=== PATIENT | male | born 1950 | race Caucasian/White ===

== ENCOUNTER 2017-01-16 13:27 | Inpatient (IN) | payer MEDICARE ==
[~2017-01-16] VITALS: Ht 165.1 cm; Wt 60.8 kg
[2017-01-16] MEDS ORDERED: ASPIRIN 325 MG TAB PO STA (13:53)
[2017-01-16] MEDS ORDERED: SOD CHLORIDE 0.9% 1,000 ML IV STA (13:53)
[2017-01-16 14:49] LABS: ADD SCAN DIFF NO
[2017-01-16 14:52] LABS: BASOPHIL # 0.1 10^3/ul (0.0-0.1); EOSINOPHILS # 0.4 10^3/ul (0.0-0.5); EOSINOPHILS % 5.3 % (0.0-7.0); HEMATOCRIT 48.1 % (42.0-52.0); HEMOGLOBIN 15.9 g/dl (14.0-18.0); LYMPHOCYTES # 2.4 10^3/ul (0.8-2.9); LYMPHOCYTES % 34.1 % (15.0-51.0); MEAN CORPUSCULAR HEMOGLOBIN 29.7 pg (29.0-33.0); MEAN CORPUSCULAR HGB CONC 33.1 g/dl (32.0-37.0); MEAN CORPUSCULAR VOLUME 89.7 fl (82.0-101.0); MEAN PLATELET VOLUME 9.5 fl (7.4-10.4); MONOCYTE # 0.6 10^3/ul (0.3-0.9); MONOCYTES % 8.9 % (0.0-11.0); NEUTROPHIL # 3.5 10^3/ul (1.6-7.5); NEUTROPHILS % 50.6 % (39.0-77.0); PLATELET COUNT 426 10^3/UL (140-415); RED BLOOD COUNT 5.36 10^6/ul (4.70-6.10); RED CELL DISTRIBUTION WIDTH 12.2 % (11.5-14.5)
[2017-01-16 15:05] LABS: CHLORIDE 101 mmol/L (97-110); SODIUM 141 mmol/L (135-144)
[2017-01-16 15:06] LABS: POTASSIUM 4.8 mmol/L (3.5-5.1)
[2017-01-16 15:08] LABS: ANION GAP 14 (8-16); BLOOD UREA NITROGEN 12 mg/dl (7-20); CARBON DIOXIDE 31 mmol/L (21-31); CREATININE 0.93 mg/dl (0.61-1.24)
[2017-01-16 15:09] LABS: CALCIUM 9.7 mg/dl (8.4-10.2); GLUCOSE 108 mg/dl (70-220)
--- NOTE | 2017-01-16 15:10 | RADRPT ---
PROCEDURE: XR Chest. CLINICAL INDICATION: Stroke TECHNIQUE: Chest AP portable COMPARISON: None available FINDINGS: The mediastinal structures are unremarkable. There is calcification of the thoracic aorta (consiste nt with atherosclerosis). The heart is normal in size and configuration. The pulmonary vascularity is normal. The lung simons are unremarkable. No consolidation is identified. The pleural spaces are unremarkable. There are senescent changes of the axial skeleton. IMPRESSION: Calcification of the thoracic aorta (consistent with atherosclerosis). No evidence for active cardiopulmonary disease. RPTAT: HGDB .Jamey Javier MD, MD Date Time Electronically viewed and signed by .Jamey Javier MD, on 01/16/2017 15:09 .B/
[2017-01-16 15:16] LABS: INR 0.91; PARTIAL THROMBOPLASTIN TIME 30.9 Sec (25.0-35.0); PROTIME 12.3 Sec (12.2-14.2)
[2017-01-16 15:21] LABS: TROPONIN-I < 0.012 ng/ml (0.00-0.12)
--- NOTE | 2017-01-16 15:46 | RADRPT ---
PROCEDURE: CT Brain without contrast. CLINICAL INDICATION: Left arm/left leg numbness and weakness. Possible stroke. TECHNIQUE: CT scan of the brain was performed on a multidetector high-resolution CT scan. Axial im aging was obtained of the brain without contrast administration. Coronal and sagittal reformatted i mages were obtained from the axial source images. Standard CT scan of the head without contrast prot ocols were performed. The total exam CTDI equals 39.62 mGy and the total exam DLP equals 554.95 mGy-cm. One or more of the following dose reduction techniques were used: - Automated exposure control. - Adjustment of the mA and/or kV according to patient size. Use of iterative reconstruction technique. COMPARISON: None FINDINGS: There is encephalomalacia involving the right parietal lobe without dilatation of the ri ght lateral ventricle. While this finding is likely due to ischemic old infarct however an underlyi ng parenchymal or even extraaxial lesion cannot be totally excluded. Recommend follow-up MRI of the brain with contrast for further evaluation. The ventricular system and peripheral CSF spaces are o therwise unremarkable. No evidence of intracranial hemorrhage is or other evidence of masses. There is minimal periventricular deep white matter changes consistent with chronic microvascular ischemic changes. There is mild bilateral ethmoid sinus disease. Remainder the paranasal sinuses and masto ids visualized are unremarkable. The bones and calvarium are intact. IMPRESSION: 1. Encephalomalacia involving the right parietal lobe without dilatation of the right lateral ventr icle as described above. This finding is likely due to ischemic remote infarct. However an underlyi ng parenchymal or even extraaxial lesion cannot be totally excluded. Recommend follow-up MRI of the brain with contrast further evaluation. 2. No other evidence of intracranial masses. Negative for intracranial hemorrhages. 3. Minimal nonspecific chronic microischemic changes. RPTAT:AAJJ Physician Otto Date Time Electronically viewed and signed by Physician Otto on 01/16/2017 15:46 BM/
--- NOTE | 2017-01-16 17:18 | ERA ---
ER Documentation Chief Complaint Date/Time DATE: 01/16/17 TIME: 17:15 Chief Complaint RIGHT SIDED NUMBNESS/WEAKNESS IN ARM AND LEG SINCE YESTERDAY HPI Yesterday his right arm and leg felt a sleep for a few hours and then resolved. This occurred in the late afternoon and resolved in the early evening. He said he went to bed and he felt normal. He said this morning he woke up normal at 8 AM the tingling r returned and his right arm and leg also became heavy. He said he was trying to make coffee and he could not hold the cup and move his right hand. He also states when he walks he is dragging his right leg a little bit. No visual change no speech change. Says his symptoms have been the same since 8 AM. ROS All systems reviewed and are negative except as per history of present illness. Medications Home Meds No Active Prescriptions or Reported Meds Allergies Allergies: Coded Allergies: No Known Allergy (Unverified , 01/16/17) PMhx/Soc Medical and Surgical Hx: pt denies Medical Hx, pt denies Surgical Hx Hx Alcohol Use: Yes Hx Substance Use: No Hx Tobacco Use: Yes Smoking Status: Former smoker FmHx Family History: No coronary disease Physical Exam Vitals Vital Signs Date Time Temp Pulse Resp B/P Pulse Ox O2 Delivery O2 Flow Rate FiO2 01/16/17 13:44 Nasal Cannula 2 01/16/17 13:33 97.8 82 20 130/80 98 Physical Exam Const: Well-developed, well-nourished Head: Atraumatic, normocephalic Eyes: Normal Conjunctiva, PERRLA, EOMI, normal sclera, no nystagmus ENT: Normal External Ears, Nose and Mouth, moist mucus membranes. Neck: Full range of motion. No meningismus, no lymphadenopathy. Resp: Clear to auscultation bilaterally, no wheezing, rhonchi, rales Cardio: Regular rate and rhythm, no murmurs, S1 S2 present Abd: Soft, non tender x 4, non distended. Normal bowel sounds, no guarding or rebound, no pulsitile abdominal masses or bruits Skin: No petechiae or rashes, no ecchymosis , no maculopapular rash Back: No midline or flank tenderness Ext: No cyanosis, or edema, FROM x 4, normal inspection, neurovascularly intact x 4 Neur: Awake and alert, positive pronator drift to the right upper extremity subjective right leg heaviness, subjective decreased sensation in the right arm and leg, , cerebellum intact Psych: Normal Mood and Affect Result Diagram: 01/16/17 1430 01/16/17 1430 Results 24 hrs Laboratory Tests Test 01/16/17 14:30 Activated Partial Thromboplast Time 30.9Sec Anion Gap 14 Basophils # 0.110^3/ul Basophils % 1.0% Blood Urea Nitrogen 12mg/dl Calcium Level 9.7mg/dl Carbon Dioxide Level 31mmol/L Chloride Level 101mmol/L Creatinine 0.93mg/dl Eosinophils # 0.410^3/ul Eosinophils % 5.3% Glucose Level 108mg/dl Hematocrit 48.1% Hemoglobin 15.9g/dl INR International Normalized Ratio 0.91 Lymphocytes # 2.410^3/ul Lymphocytes % 34.1% Mean Corpuscular Hemoglobin 29.7pg Mean Corpuscular Hemoglobin Concent 33.1g/dl Mean Corpuscular Volume 89.7fl Mean Platelet Volume 9.5fl Monocytes # 0.610^3/ul Monocytes % 8.9% Neutrophils # 3.510^3/ul Neutrophils % 50.6% Nucleated Red Blood Cells # 0.010^3/ul Nucleated Red Blood Cells % 0.0/100WBC Platelet Count 70016^3/UL Potassium Level 4.8mmol/L Prothrombin Time 12.3Sec Prothrombin Time Ratio 1.0 Red Blood Count 5.3610^6/ul Red Cell Distribution Width 12.2% Sodium Level 141mmol/L Troponin I < 0.012ng/ml White Blood Count 7.010^3/ul Current Medications Medications (Trade) Dose Ordered Sig/Chely Route PRN Reason Start Time Stop Time Status Last Admin Dose Admin Sodium Chloride (NS) 1,000 ml @ 1,000 mls/hr Q1H STAT IV 01/16/17 13:53 01/16/17 14:52 DC 01/16/17 14:42 Aspirin (Aspirin) 325 mg ONCE STAT PO 01/16/17 13:53 01/16/17 14:23 DC 01/16/17 14:40 Procedures/MDM EKG: Rate/Rhythm: Normal Sinus Rhythm,NL intervals QRS, ST, QT: NORMAL VT, QRS, QT] Impression: NORMAL EKG PROCEDURE: CT Brain without contrast. CLINICAL INDICATION: Left arm/left leg numbness and weakness. Possible stroke. TECHNIQUE: CT scan of the brain was performed on a multidetector high- resolution CT scan. Axial imaging was obtained of the brain without contrast administration. Coronal and sagittal reformatted images were obtained from the axial source images. Standard CT scan of the head without contrast protocols were performed. The total exam CTDI equals 39.62 mGy and the total exam DLP equals 554.95 mGy- cm. One or more of the following dose reduction techniques were used: - Automated exposure control. - Adjustment of the mA and/or kV according to patient size. Use of iterative reconstruction technique. COMPARISON: None FINDINGS: There is encephalomalacia involving the right parietal lobe without dilatation of the right lateral ventricle. While this finding is likely due to ischemic old infarct however an underlying parenchymal or even extraaxial lesion cannot be totally excluded. Recommend follow-up MRI of the brain with contrast for further evaluation. The ventricular system and peripheral CSF spaces are otherwise unremarkable. No evidence of intracranial hemorrhage is or other evidence of masses. There is minimal periventricular deep white matter changes consistent with chronic microvascular ischemic changes. There is mild bilateral ethmoid sinus disease. Remainder the paranasal sinuses and mastoids visualized are unremarkable. The bones and calvarium are intact. IMPRESSION: 1. Encephalomalacia involving the right parietal lobe without dilatation of the right lateral ventricle as described above. This finding is likely due to ischemic remote infarct. However an underlying parenchymal or even extraaxial lesion cannot be totally excluded. Recommend follow-up MRI of the brain with contrast further evaluation. 2. No other evidence of intracranial masses. Negative for intracranial hemorrhages. 3. Minimal nonspecific chronic microischemic changes. RPTAT:AAJJ Physician Otto Date Time Electronically viewed and signed by Physician Otto on 01/16/2017 15:46 BM/ CC: ROSENDO GARCIA DO PROCEDURE: XR Chest. CLINICAL INDICATION: Stroke TECHNIQUE: Chest AP portable COMPARISON: None available FINDINGS: The mediastinal structures are unremarkable. There is calcification of the thoracic aorta (consistent with atherosclerosis). The heart is normal in size and configuration. The pulmonary vascularity is normal. The lung simons are unremarkable. No consolidation is identified. The pleural spaces are unremarkable. There are senescent changes of the axial skeleton. IMPRESSION: Calcification of the thoracic aorta (consistent with atherosclerosis). No evidence for active cardiopulmonary disease. RPTAT: HGDB .Jamey Javier MD, MD Date Time Electronically viewed and signed by .Jamey Javier MD, MD on 01/16/2017 15:09 .B/ CC: ROSENDO GARCIA DO The patient is not a TPA candidate because of the onset of symptoms. He is out of the window today. He did have some stuttering symptoms yesterday. Patient will be admitted to the hospital for further stroke workup. Departure Diagnosis: Primary Impression: CVA (cerebral vascular accident) Qualified Code: I63.9 - Cerebrovascular accident (CVA), unspecified mechanism Condition: Stable ROSENDO GARCIA DO Jan 16, 2017 17:18
[2017-01-16] MEDS ORDERED: SOD CHLORIDE 0.9% 1,000 ML IV SCH (17:29)
[2017-01-16] MEDS ORDERED: ACETAMINOPHEN 325 MG TAB PO PRN ×2 (17:30→18:00)
[2017-01-16] MEDS ORDERED: ONDANSETRON 4 MG INJ IV PRN ×2 (17:30→18:00)
[2017-01-16] MEDS ORDERED: ALBUTEROL/IPRATROPIUM (NEB) 3 ML AMP HHN PRN (18:00)
[2017-01-16] MEDS ORDERED: hydrALAzine 20 MG INJ IV PRN (18:00)
[2017-01-16] MEDS ORDERED: NITROGLYCERIN (SL) 0.4 MG TAB SL PRN (18:00)
[2017-01-16] MEDS ORDERED: NA PHOSPHATE/BIPHOS 133 ML ENEMA PR PRN (18:00)
[2017-01-16] MEDS ORDERED: NACL 0.9% 3 ML SYG IV SCH (18:00)
[2017-01-16] MEDS ORDERED: DOCUSATE SODIUM 100 MG CAP PO PRN (18:00)
[2017-01-16] MEDS ORDERED: morphine 2 MG INJ IV PRN (18:00)
[2017-01-16] MEDS ORDERED: MAGNESIUM HYDROXIDE 30ML CUP PO PRN (18:00)
[2017-01-16] MEDS ORDERED: HYDROCODONE/APAP (5/325) TAB PO PRN (18:00)
[2017-01-16] MEDS ORDERED: LORAZEPAM 2 MG INJ IV PRN (18:00)
--- NOTE | 2017-01-16 18:50 | RADRPT ---
PROCEDURE: US Carotids. CLINICAL INDICATION: Vertigo and dizziness TECHNIQUE: Multiple sonographic of the carotid bifurcation region and vertebral arteries were obta ined utilizing bond scale, duplex and color-flow imaging. The images were reviewed on a PACS worksta tion. COMPARISON: No prior studies are available for comparison. FINDINGS: Evaluation of the right carotid bifurcation region reveals moderate calcific atherosclerotic disease ; however no hemodynamically significant disease. Evaluation of the left carotid bifurcation region reveals mild calcific atherosclerotic disease; how ever no hemodynamically significant disease. There is antegrade flow within the vertebral arteries bilaterally. RIGHT CAROTID MEASUREMENTS: Common Carotid Bnkjom98.2 (cm/sec) Internal Carotid Artery - qcsmogub32.1 (cm/sec) Internal Carotid Artery - mid51.5 (cm/sec) Internal Carotid Artery - yeyaix22.2 (cm/sec) Internal Carotid/Common Carotid1.2 LEFT CAROTID MEASUREMENTS: Common Carotid Cfbmyh14.8 (cm/sec) Internal Carotid Artery - sobverjn01.9 (cm/sec) Internal Carotid Artery - mid71.9 (cm/sec) Internal Carotid Artery - dista68.1 (cm/sec) Internal Carotid/Common Carotid1.1 IMPRESSION: 1. No evidence for hemodynamically significant carotid artery stenosis. There is calcified and soft plaquing in bilateral carotid bulbs right greater than left, but no hemodynamically significant greta nosis. 2. Normal antegrade flow in the vertebral arteries bilaterally. RPTAT: HH .Timi Holt MD, MD Date Time Electronically viewed and signed by .Timi Holt MD, MD on 01/16/2017 18:49 .W/
--- NOTE | 2017-01-16 19:09 | CONS ---
DATE OF ADMISSION: 01/16/2017 DATE OF CONSULTATION: 01/16/2017 TYPE OF CONSULTATION : Neurology. Thank you, Dr. Spence, for your kind referral for evaluation of acute stroke. HISTORY OF PRESENT ILLNESS: The patient is a 66-year-old gentleman with no past medical history and no medications prior to admission who yesterday developed some numbness in the right face, right arm and leg, he seemed to improve yesterday, but this time he woke up and was somewhat weaker in his right arm and came to the emergency room. He had CAT scan of the head which shows a right frontal lobe encephalomalacia, likely remote infarcts. MRI with contrast was suggested. His labs show essentially normal CBC, platelets 426. Basic metabolic panel within normal limits. Normal PT, PTT. PAST MEDICAL HISTORY: None. SOCIAL HISTORY: No alcohol, tobacco, drug use. Former smoker. FAMILY HISTORY: Noncontributory. ALLERGIES: NONE. CURRENT MEDICATIONS: Currently he was put on: 1. Aspirin. 2. Protonix. 3. Heparin for DVT prevention. VITAL SIGNS: Temperature 97.8, 82 pulse, 20 respiration, 130/80 blood pressure. GENERAL: Not in acute distress, lying in bed. HEENT: Normocephalic, atraumatic head. NECK: No carotid bruits. No thyromegaly. LUNGS: Clear to auscultation bilaterally. CARDIAC: Normal cardiac rhythm and sounds. ABDOMEN: Soft. EXTREMITIES: No cyanosis, clubbing or edema. NEUROLOGIC: He is awake, alert, and oriented x3 with fluent speech. Cranial nerve examination shows intact visual simons to visual threat bilaterally. Pupils reactive from 3 to 2 mm bilaterally. Extraocular movements intact without nystagmus. Symmetrical face. Preserved facial strength and sensation. Tongue is in midline. Palate elevates symmetrically. Motor strength examination shows right upper extremity weakness about 4/5 with pronator drift. Sensory examination grossly intact to light touch and pain. Deep tendon reflexes 2+ throughout. Downgoing toes bilaterally. Coordination examination shows dysmetria in the right upper extremity on [id number]-hu-qhwret testing. No tremor. Gait was not assessed. According to the patient, he veers to the side when he walks. IMPRESSION: Likely acute ischemic CVA. Per radiology recommendation, will obtain MRI of the brain; also echocardiogram, carotid ultrasounds, EKG and lipid profile. So far, patient was put on aspirin, will continue. Start Lipitor tomorrow after lipid profile was done. We will follow results of the testing. Physical therapy evaluation. Thank you very much for this interesting consultation. Dictated By: KARY JIMENEZ/JUDY Conf#: [id number] DID#: [id number] CC: ROSENDO GARCIA DO;*EndCC* MTDD
[2017-01-16 19:19] VITALS: TEMP 98.1
--- NOTE | 2017-01-16 19:42 | HP ---
DATE OF ADMISSION: 01/16/2017 CHIEF COMPLAINT: Right-sided weakness. HISTORY OF PRESENT ILLNESS: A 66-year-old male, past medical history of smoking and hypertension, w wing started having right arm and leg weakness that began yesterday evening. He went to sleep thinkin g the symptoms resolved, but he woke up early this morning around 8:00 a.m. and he started having so me tingling sensation in his right upper and right lower extremities. Then his right upper and lowe r extremities became short of heavy and weak. He was trying to make coffee this morning, was not ab le to hold this cup correctly, move his right hand and he felt like he was dragging his right side a little bit, but he had no change in his speech or vision. No headaches. No dizziness. No loss of consciousness. No chest pain, shortness of breath. No fevers or chills. No nausea, vomiting. No upper or lower GI bleeding. He decided to come into the ER. He had a head CT scan today in the ER that was negative for acute stroke, although there were findings of encephalomalacia involving the right frontal lobe, but no dilatation of the right lateral ventricle. This finding was likely due t o an ischemic remote infarct and an MRI scan was pending. The patient was given aspirin in the ER a nd IV fluid bolus as well. He has never had these symptoms before. Denies any prior history of any stroke or heart attack. PAST MEDICAL HISTORY: As stated above. ALLERGIES: NO KNOWN DRUG ALLERGIES. HOME MEDICATIONS: None. PAST SURGICAL HISTORY: None. SOCIAL HISTORY: He smokes 1 pack of cigarettes a day for the last 30 years. Negative for IV drug a buse. Negative for alcohol use. FAMILY HISTORY: Noncontributory. PHYSICAL EXAMINATION VITAL SIGNS: T-max 97.8, pulse 82, respirations 20, blood pressure 130/80, saturating at 98% on 2 L nasal cannula. GENERAL: The patient is lying in bed, answering questions appropriately, in no acute distress. HEENT: Pupils equal, round, react to light. Extraocular muscles intact. NECK: Supple; no thyromegaly. LUNGS: Clear to auscultation bilaterally. CARDIOVASCULAR: S1, S2 heard. No rubs or gallops. ABDOMEN: Soft, nontender, nondistended. Normal bowel sounds. No rebound or guarding. MUSCULOSKELETAL: No lower extremity edema bilaterally. NEUROLOGIC: 4/5 strength right upper and right lower extremities. Normal sensation in right upper and lower extremities bilaterally. Gait was not assessed. Cranial nerves II through XII appear to be intact. LABORATORIES: CBC was completely normal. Basic metabolic panel was normal. Troponin was negative x1. DIAGNOSTIC STUDIES: Head CT results as mentioned above. Carotid Doppler study shows no evidence of any hemodynamically significant carotid artery stenosis. There was calcified soft plaque in the bi lateral carotid bulbs, right greater than left. No hemodynamically significant stenosis. A chest x -ray: Calcification of thoracic aorta. No evidence of any active cardiopulmonary disease. ASSESSMENT AND PLAN A 66-year-old male coming in with right-sided upper and lower extremity weakness, with signs of acut e stroke versus transient ischemic attack: 1. Right-sided weakness. Again, likely secondary to stroke versus transient ischemic attack. We w ill admit him to telemetry floor, put him on high-dose Lipitor, high-dose aspirin, do neuro checks e very 4 hours. PT, OT consults, speech therapy consult, get a neurology consult. Check an echocardi ogram. Get an MRI of the brain. Get carotid Doppler studies. Cessation of smoking will need to be encouraged as well. Check a TSH, A1c, lipid panel. 2. Hypertension. Allow for permissive hypertension at least for the first 24 to 48 hours. 3. For gastrointestinal prophylaxis, he will be on a PPI. 4. Deep venous thrombosis prophylaxis, heparin subcutaneously. Dictated By: ANUP FONG/JUDY Conf#: [id number] DID#: [id number]
[2017-01-16 19:49] VITALS: Ht 165.1 cm; Wt 60.8 kg
[2017-01-16 19:55] VITALS: BP 148/80; PULSE 68; RESP 20
[2017-01-16] MEDS: SOD CHLORIDE 0.45% 1,000 ML IV SCH (20:04)
[2017-01-16 20:26] VITALS: PULSE 68
[2017-01-16 20:49] VITALS: BP 155/87; RESP 19
[2017-01-16] MEDS: ATORVASTATIN 80 MG TAB PO SCH (20:59)
[2017-01-16] MEDS: HEPARIN 5,000 UNIT/0.5 ML SYG SC SCH (21:01)
--- NOTE | 2017-01-16 23:36 | RADRPT ---
PROCEDURE: MR Brain without contrast. CLINICAL INDICATION: Dizziness. Right arm and leg numbness. TECHNIQUE: An MRI of the brain was performed on a 1.5 uzma scanner utilizing the following sequen amador: Sagittal T1 weighted, axial T2 weighted, axial FLAIR, coronal GRE, and axial diffusion weighted with ADC mapping. COMPARISON: None FINDINGS: New focus of restricted diffusion extending from the posterior limb of the left internal capsule sup eriorly along the chorionic compatible with acute or early subacute ischemic infarct. No other evid ence of restricted diffusion to suggest acute subacute ischemic infarction. There is no evidence of intracranial hemorrhage, mass effect, or midline shift. No extra-axial fluid collections are seen. No hypointense signal abnormalities are seen on the GRE images to suggest the presence of blood degr adation products. Encephalomalacia with surrounding gliosis in the right parietal lobe compatible with remote ischemic infarct. Scattered periventricular and subcortical white matter T2 signal hyperintensity foci thro ughout the deep white matter compatible with sequelae of chronic microvascular ischemic injury. Dem yelinating disease or vasculopathy are diagnostic considerations . Age appropriate size of the ventr icles and subarachnoid spaces. Mucosal thickening throughout the paranasal sinuses compatible with c hronic inflammatory change. Bilateral mucous retention cysts and/or polyps in the maxillary sinuses . The posterior fossa contents, brainstem, seventh - eighth cranial nerve complexes, pituitary axis, o rbits, paranasal sinuses, and mastoid air cells are unremarkable. Normal flow voids are visible in the proximal intracranial arteries and dural sinuses, indicating pa tency. IMPRESSION: 1. Focus of acute/early subacute ischemic infarct in the left posterior limb of the internal capsul e . No surrounding edema, mass effect, or shift. No intracranial hemorrhage. 2. Remote to right parietal ischemic infarct. 3. Chronic microvascular ischemic changes in the deep white matter. 4. Bilateral chronic inflammatory sinus disease as described in detail above. RPTAT:AAJJ Physician Jarett Date Time Electronically viewed and signed by Physician Jarett on 01/16/2017 23:36 JOHN/
[2017-01-17] VITALS (12 sets, daily range): BP systolic 109–129; BP diastolic 62–90; PULSE 58–71; RESP 18–19
[2017-01-17] MEDS: PANTOPRAZOLE (EC) 40 MG TAB PO SCH (05:06)
[2017-01-17] MEDS: SOD CHLORIDE 0.45% 1,000 ML IV SCH ×2 (06:57→12:28)
[2017-01-17 07:51] LABS: CHOL/HDL RATIO 3.5 RATIO
[2017-01-17 08:23] LABS: THYROID STIMULATING HORMONE 0.693 MIU/L (0.465-4.680)
[2017-01-17] MEDS: ASPIRIN (EC) 325 MG TAB PO SCH (08:24)
[2017-01-17] MEDS: HEPARIN 5,000 UNIT/0.5 ML SYG SC SCH ×2 (08:26→20:42)
[2017-01-17 08:34] LABS: ADD SCAN DIFF NO
[2017-01-17 08:43] LABS: POTASSIUM 4.2 mmol/L (3.5-5.1)
[2017-01-17 08:46] LABS: CREATININE 0.81 mg/dl (0.61-1.24)
[2017-01-17 08:47] LABS: CALCIUM 9.2 mg/dl (8.4-10.2); MAGNESIUM 2.3 mg/dl (1.7-2.5); PHOSPHORUS 3.6 mg/dl (2.5-4.9)
[2017-01-17 10:29] LABS: BASOPHIL # 0.1 10^3/ul (0.0-0.1); BASOPHILS % 0.9 % (0.0-2.0); EOSINOPHILS # 0.4 10^3/ul (0.0-0.5); EOSINOPHILS % 6.3 % (0.0-7.0); HEMATOCRIT 43.7 % (42.0-52.0); HEMOGLOBIN 14.5 g/dl (14.0-18.0); LYMPHOCYTES # 2.3 10^3/ul (0.8-2.9); LYMPHOCYTES % 34.9 % (15.0-51.0); MEAN CORPUSCULAR HEMOGLOBIN 29.8 pg (29.0-33.0); MEAN CORPUSCULAR HGB CONC 33.2 g/dl (32.0-37.0); MEAN CORPUSCULAR VOLUME 89.7 fl (82.0-101.0); MEAN PLATELET VOLUME 9.3 fl (7.4-10.4); MONOCYTE # 0.6 10^3/ul (0.3-0.9); MONOCYTES % 8.6 % (0.0-11.0); NEUTROPHIL # 3.2 10^3/ul (1.6-7.5); NEUTROPHILS % 48.8 % (39.0-77.0); PLATELET COUNT 365 10^3/UL (140-415); RED BLOOD COUNT 4.87 10^6/ul (4.70-6.10); RED CELL DISTRIBUTION WIDTH 12.5 % (11.5-14.5); WHITE BLOOD COUNT 6.5 10^3/ul (4.8-10.8)
--- NOTE | 2017-01-17 11:06 | PN ---
Date/Time of Note Date/Time of Note DATE: 01/17/17 TIME: 11:01 Assessment/Plan VTE Prophylaxis VTE Prophylaxis Intervention: heparin Lines/Catheters IV [facility] Type [facility]from [facility] Peripheral IV Urinary Cath still in place: No Assessment/Plan Chief Complaint/Hosp Course ASSESSMENT AND PLAN: 66-year-old male coming in with right-sided upper and lower extremity weakness, with signs of acute stroke on MRI brain. 1. Right-sided weakness. Again, likely secondary to stroke versus transient ischemic attack. MRI brain = Focus of acute/early subacute ischemic infarct in the left posterior limb of the internal capsule. - continue telemetry floor care, Lipitor, high-dose aspirin - neuro checks every 4 hours. - f/uPT, OT consults, speech therapy consult rec's - f/u neurology consult rec's, echocardiogram, carotid Doppler studies. - Cessation of smoking will need to be encouraged as well. - f/u TSH, A1c, lipid panel. 2. Hypertension. Allow for permissive hypertension for another 24 hrs. 3. For gastrointestinal prophylaxis - PPI. 4. Deep venous thrombosis prophylaxis - heparin subcutaneously. Problems: Subjective 24 Hr Interval Summary Free Text/Dictation No acute events overnight, awaiting Neuro eval, MRI + for CVA. Exam/Review of Systems Vital Signs Vitals Vital Signs Date Time Temp Pulse Resp B/P Pulse Ox O2 Delivery O2 Flow Rate FiO2 01/17/17 08:38 59 01/17/17 07:22 97.9 19 120/68 95 01/16/17 19:55 Room Air 01/16/17 13:44 2 Intake and Output 01/16/17 01/16/17 01/17/17 15:00 23:00 07:00 Intake Total 200 ml Output Total 600 ml Balance -400 ml Exam GENERAL: The patient is lying in bed, answering questions appropriately, in no acute distress. HEENT: Pupils equal, round, react to light. Extraocular muscles intact. NECK: Supple; no thyromegaly. LUNGS: Clear to auscultation bilaterally. CARDIOVASCULAR: S1, S2 heard. No rubs or gallops. ABDOMEN: Soft, nontender, nondistended. Normal bowel sounds. No rebound or guarding. MUSCULOSKELETAL: No lower extremity edema bilaterally. NEUROLOGIC: 4/5 strength right upper and right lower extremities. Normal sensation in right upper and lower extremities bilaterally. Gait was not assessed. Cranial nerves II through XII appear to be intact. Results Result Diagram: 01/17/17 0625 01/17/17 0625 Results 24 hrs Laboratory Tests Test 01/16/17 14:30 01/17/17 06:25 01/17/17 06:29 Activated Partial Thromboplast Time 30.9 Anion Gap 14 13 Basophils # 0.1 0.1 Basophils % 1.0 0.9 Blood Urea Nitrogen 12 10 Calcium Level 9.7 9.2 Carbon Dioxide Level 31 27 Chloride Level 101 105 Creatinine 0.93 0.81 Eosinophils # 0.4 0.4 Eosinophils % 5.3 6.3 Free Thyroxine 1.07 Glucose Level 108 91 Hematocrit 48.1 43.7 Hemoglobin 15.9 14.5 INR International Normalized Ratio 0.91 Lymphocytes # 2.4 2.3 Lymphocytes % 34.1 34.9 Mean Corpuscular Hemoglobin 29.7 29.8 Mean Corpuscular Hemoglobin Concent 33.1 33.2 Mean Corpuscular Volume 89.7 89.7 Mean Platelet Volume 9.5 9.3 Monocytes # 0.6 0.6 Monocytes % 8.9 8.6 Neutrophils # 3.5 3.2 Neutrophils % 50.6 48.8 Nucleated Red Blood Cells # 0.0 0.0 Nucleated Red Blood Cells % 0.0 0.0 Platelet Count 426 H 365 Potassium Level 4.8 4.2 Prothrombin Time 12.3 Prothrombin Time Ratio 1.0 Red Blood Count 5.36 4.87 Red Cell Distribution Width 12.2 12.5 Sodium Level 141 141 Troponin I < 0.012 White Blood Count 7.0 6.5 Cholesterol Level 195 Cholesterol/HDL Ratio 3.5 HDL Cholesterol 55 LDL Cholesterol, Calculated 118 Magnesium Level 2.3 Phosphorus Level 3.6 Thyroid Stimulating Hormone (TSH) 0.693 Triglycerides Level 112 Hemoglobin A1c 5.7 Medications Medications Current Medications Ondansetron HCl (Zofran Inj) 4 mg Q6H PRN IV NAUSEA AND/OR VOMITING; Start 01/16 at 18:00 Acetaminophen (Tylenol Tab) 650 mg Q6H PRN PO PAIN LEVEL 1-3 OR FEVER; Start at 18:00 Acetaminophen/ Hydrocodone Bitart ([place] (5/325)) 1 tab Q6H PRN PO MODERATE PAIN LEVEL 4-6; Start 01/16/17 at 18:00 Morphine Sulfate (morphine) 2 mg Q4H PRN IV SEVERE PAIN LEVEL 7-10; Start at 18:00 Docusate Sodium (Colace) 100 mg Q12H PRN PO CONSTIPATION; Start 01/16/17 at 18: 00 Magnesium Hydroxide (Milk Of Mag) 30 ml DAILY PRN PO CONSTIPATION; Start at 18:00 Sodium Biphosphate/ Sodium Phosphate (Fleet Enema) 133 ml DAILY PRN [place] CONSTIPATION; Start 01/16/17 at 18:00 Pantoprazole (Protonix Tab) 40 mg DAILY@06 PO Last administered on 01/17/17 05: 06; Admin Dose 40 MG; Start 01/17/17 at 06:00 Heparin Sodium (Porcine) 5000 unit 5,000 unit Q12 SC Last administered on 08:26; Admin Dose 5,000 UNIT; Start 01/16/17 at 21:00 Sodium Chloride (1/2 NS) 1,000 ml @ 75 mls/hr [id number] IV Last administered on 01/16/17 20:04; Admin Dose 75 MLS/HR; Start 01/16/17 at 17:37 Lorazepam (Ativan) 0.5 mg Q6H PRN IV ANXIETY; Start 01/16/17 at 18:00 Hydralazine HCl (Apresoline) 10 mg Q6H PRN IV ELEVATED BLOOD PRESSURE; Start at 18:00 Nitroglycerin (Nitroglycerin (Sl Tab) 0.4 Mg) 1 tab Q5M PRN SL ANGINA; Start at 18:00 Aspirin (Ecotrin) 325 mg DAILY PO Last administered on 01/17/17 08:24; Admin Dose 325 MG; Start 01/17/17 at 09:00 Atorvastatin Calcium (Lipitor) 80 mg HS PO Last administered on 01/16/17 20:59 ; Admin Dose 80 MG; Start 01/16/17 at 18:00 Procedures Procedures MRI brain (01/16/17) IMPRESSION: 1. Focus of acute/early subacute ischemic infarct in the left posterior limb of the internal capsule . No surrounding edema, mass effect, or shift. No intracranial hemorrhage. 2. Remote to right parietal ischemic infarct. 3. Chronic microvascular ischemic changes in the deep white matter. 4. Bilateral chronic inflammatory sinus disease as described in detail above. ANUP MARTIN Jan 17, 2017 11:06
--- NOTE | 2017-01-17 14:09 | RADRPT ---
Echocardiogram Report Patient Name: ROSALINDA PIERRE Gender: Male Date: 1950 Study Date: 17-Jan-2017 Sampler Radioactive Waste: Jewel Garcia [facility] Location: 512A Ref. Physician: ANUP MARTIN Quality: Good Procedures: Transthoracic echocardiogram with complete 2D, M-Mode, and doppler examination. Indications: Cerebrovascular Accident. 2D/M Mode Doppler Measurement Value Normal Ranges Measurement Value Normal Ranges LVIDd 2D 4.9 3.5 - 5.6 cm AV Peak Phillip 0.9 m/sec LVIDs 2D 2.9 2.1 - 4.1 cm AV Peak PG 3.5 mmHg LVPWd 2D 0.8 0.6 - 1.1 cm LVOT Peak Phillip 0.7 m/sec IVSd 2D 0.7 0.6 - 1.1 cm LVOT Peak PG 2.2 mmHg AoR Diam 2D 3.0 2.0 - 3.7 cm MV E Peak Phillip 0.4 m/sec EDV 2D 110.5 cm3 MV A Peak Phillip 0.6 m/sec ESV 2D 23.5 cm3 MV E/A 0.7 LA Dimen 2D 3.9 2.3 - 4.0 cm MV Decel Time 233 msec MV Decel Sunflower 2 MV E/A 0.7 TR Peak Phillip 2.6 m/sec TR Peak PG 27.4 mmHg RVSP 30.0 mmHg Findings Left Ventricle: Normal left ventricular systolic function. Normal left ventricular cavity size. Normal left ventricular wall thickness. Ejection fraction is visually estimated at 65 %. Tissue Doppler/Mitral Doppler indices are consistent with impaired relaxation (Stage I diastolic dysfunction). Right Ventricle: Normal right ventricular size. Normal right ventricular systolic function. Left Atrium: The left atrium is normal in size. Right Atrium: The right atrium is normal in size. Mitral Valve: Mitral valve leaflets appear mildly thickened. Mild mitral valve regurgitation. Aortic Valve: Normal appearance of the aortic valve. No significant aortic stenosis or insufficiency. Tricuspid Valve: Normal appearance of the tricuspid valve. Estimated peak PA systolic pressure 30 mmHg. There is mild to moderate tricuspid regurgitation. Pulmonic Valve: Normal pulmonic valve appearance. Pericardium: Normal pericardium with no significant pericardial effusion. Aorta: Normal aortic root. IVC: Normal size and normal respiratory collapse consistent with normal right atrial pressure. Conclusions 1.Normal left ventricular systolic function. Normal left ventricular cavity size. Normal left ventricular wall thickness. Ejection fraction is visually estimated at 65 %. Tissue Doppler/Mitral Doppler indices are consistent with impaired relaxation (Stage I diastolic dysfunction). 2.Normal right ventricular size. Normal right ventricular systolic function. 3.The left atrium is normal in size. 4.The right atrium is normal in size. 5.Estimated peak PA systolic pressure 30 mmHg. There is mild to moderate tricuspid regurgitation. 6.Mild mitral valve regurgitation. 7.No significant aortic stenosis or insufficiency. 8.Normal pericardium with no significant pericardial effusion. Electronically Signed By: Dinh Doty 17-Jan-2017 14:08:51 -0800 Patient Name: ROSALINDA PIERRE Study Date: 17-Jan-2017 [id number]
[2017-01-17] MEDS: ATORVASTATIN 80 MG TAB PO SCH (20:40)
[2017-01-18] VITALS (8 sets, daily range): BP systolic 117–140; BP diastolic 66–80; PULSE 69–118; RESP 16–20
[2017-01-18] MEDS: SOD CHLORIDE 0.45% 1,000 ML IV SCH (01:56)
[2017-01-18] MEDS: PANTOPRAZOLE (EC) 40 MG TAB PO SCH (05:05)
[2017-01-18] MEDS: ASPIRIN (EC) 325 MG TAB PO SCH (08:30)
[2017-01-18] MEDS: HEPARIN 5,000 UNIT/0.5 ML SYG SC SCH (08:32)
[2017-01-18 10:17] LABS: ADD SCAN DIFF NO
[2017-01-18 10:20] LABS: BASOPHIL # 0.1 10^3/ul (0.0-0.1); BASOPHILS % 0.7 % (0.0-2.0); EOSINOPHILS # 0.3 10^3/ul (0.0-0.5); EOSINOPHILS % 4.3 % (0.0-7.0); HEMATOCRIT 44.3 % (42.0-52.0); HEMOGLOBIN 14.8 g/dl (14.0-18.0); LYMPHOCYTES # 1.7 10^3/ul (0.8-2.9); MEAN CORPUSCULAR HEMOGLOBIN 29.7 pg (29.0-33.0); MEAN CORPUSCULAR HGB CONC 33.4 g/dl (32.0-37.0); MEAN PLATELET VOLUME 9.1 fl (7.4-10.4); MONOCYTE # 0.6 10^3/ul (0.3-0.9); MONOCYTES % 7.9 % (0.0-11.0); NEUTROPHIL # 4.3 10^3/ul (1.6-7.5); PLATELET COUNT 363 10^3/UL (140-415); RED BLOOD COUNT 4.98 10^6/ul (4.70-6.10); RED CELL DISTRIBUTION WIDTH 12.1 % (11.5-14.5)
[2017-01-18 10:38] LABS: POTASSIUM 4.2 mmol/L (3.5-5.1)
[2017-01-18 10:41] LABS: CREATININE 0.82 mg/dl (0.61-1.24)
[2017-01-18 10:42] LABS: CALCIUM 9.2 mg/dl (8.4-10.2)
--- NOTE | 2017-01-18 11:53 | PDOCDIS ---
Discharge Instructions CONDITION Patient Condition: Stable ANUP MARTIN Jan 18, 2017 11:53
--- NOTE | 2017-01-18 12:17 | DS ---
DATE OF ADMISSION: 01/16/2017 DATE OF DISCHARGE: 01/18/2017 HOSPITAL COURSE: This is a 66-year-old male originally admitted on 01/16/2017, being discharged to the acute rehab facility on 01/18/2017. The patient came in with right-sided weakness symptoms. He was diagnosed with an acute stroke. MRI of the brain did show a focus of acute early subacute isch emic infarct in the left posterior limb of the internal capsule. The patient was admitted, put on hi gh-dose Lipitor, high-dose aspirin and neuro checks were performed. He was seen by physical and occ upational therapy. He was recommended acute rehab evaluation. The patient's lab work was actually pretty good. His A1c was 5.7. His cholesterol panel was normal. Nevertheless, with a stroke we pu t him on high-dose Lipitor to allow for permissive hypertension. His right upper extremity and lowe r extremity weakness symptoms slowly improved, but he needs further rehabilitation. He is able to a mbulate after being seen by the physical therapy team and tolerate a p.o. diet, but again, he needs more rehabilitation. His blood pressure has been stabilized now as well and he will be discharged t o an acute rehab facility today in improved condition. DISCHARGE MEDICATIONS: He will be sent with: 1. Tylenol 650 q.6 p.r.n. 2. DuoNeb inhaled q.4h. p.r.n. 3. Aspirin 325 mg daily. 4. Lipitor 80 mg at bedtime. 5. Colace 100 mg q.12h. p.r.n. 6. Heparin 5000 units subcutaneous q. 12. 7. Hydralazine 10 mg IV q.6 p.r.n. 8. [place] 5/325 q.6 p.r.n. 9. Ativan 0.5 mg IV q.6 p.r.n. 10. Milk of Magnesia 30 mL every day p.r.n. 11. Morphine 2 mg IV q.4 p.r.n. 12. Nitroglycerin sublingual 0.4 mg p.r.n. 13. Zofran 4 mg IV q.6 p.r.n. 14. Protonix 40 mg daily. 15. Fleets enema p.r.n. He will need to follow up with his regular doctor in clinic in the next 1 to 2 weeks. FINAL DIAGNOSES: 1. Right hand weakness, again secondary to acute ischemic infarct in the brain. Improving. 2. Essential hypertension. 3. Smoking history. Cessation of smoking education performed. Time spent discharging the patient was 40 minutes. Dictated By: ANUP STUBBS Conf#: [id number] DID#: [id number]
== END 2017-01-18 14:50 | DRG 65 ==
LOC: FTE 13:27 → TEL 17:30
PROVIDERS: ADMIT Hospitalist; ATTEND Hospitalist
DX: I63.9 Cerebral infarction, unspecified (principal); G81.91 Hemiplegia, unspecified affecting right dominant side; I10 Essential (primary) hypertension; Z72.0 Tobacco use
CPT/HCPCS: 36415; 70450; 70551; 71010; 80048; 80061; 83036; 83735; 84100; 84439; 84443; 84484; 85025; 85610; 85730; 92610; 93005; 93306; 93880; 97110; 97116; 97162; 97167; 97530; J7030

== ENCOUNTER 2017-01-18 15:00 | Inpatient (IN) | payer MEDICARE, MEDICAID ==
[~2017-01-18] VITALS: Ht 167.6 cm; Wt 60.8 kg
[2017-01-18 15:18] VITALS: BP 120/65; RESP 18
[2017-01-18] MEDS ORDERED: LACTULOSE 30ML CUP PO PRN (16:00)
[2017-01-18] MEDS ORDERED: LORAZEPAM 2 MG INJ IV PRN (16:00)
[2017-01-18] MEDS ORDERED: SOD CHLORIDE 0.45% 1,000 ML IV SCH (16:00)
[2017-01-18] MEDS ORDERED: ONDANSETRON 4 MG INJ IV PRN (16:00)
[2017-01-18] MEDS ORDERED: morphine 2 MG INJ IV PRN (16:00)
[2017-01-18] MEDS ORDERED: BISACODYL 10 MG SUPP PR PRN (16:00)
[2017-01-18] MEDS ORDERED: hydrALAzine 20 MG INJ IV PRN (16:00)
[2017-01-18] MEDS ORDERED: NITROGLYCERIN (SL) 0.4 MG TAB SL PRN (16:00)
[2017-01-18] MEDS ORDERED: NA PHOSPHATE/BIPHOS 133 ML ENEMA PR PRN (16:00)
[2017-01-18] MEDS ORDERED: MAGNESIUM HYDROXIDE 30ML CUP PO PRN (16:00)
[2017-01-18] MEDS ORDERED: NACL 0.9% 3 ML SYG IV SCH (16:00)
[2017-01-18 16:58] VITALS: Ht 167.6 cm; Wt 60.8 kg
[2017-01-18 17:10] LABS: ADD UMIC NO; URINE BILIRUBIN (Dip) NEGATIVE (NEGATIVE); URINE BLOOD (Dip) NEGATIVE (NEGATIVE); URINE COLOR LT. YELLOW (YELLOW); URINE GLUCOSE (Dip) NEGATIVE (NEGATIVE); URINE KETONES (Dip) NEGATIVE (NEGATIVE); URINE LEUKOCYTE ESTERASE (Dip) NEGATIVE (NEGATIVE); URINE NITRITE (Dip) NEGATIVE (NEGATIVE); URINE TOTAL PROTEIN (Dip) NEGATIVE (NEGATIVE); URINE UROBILINOGEN (Dip) 0.2 E.U./dL (0.1-1.0)
[2017-01-18 20:00] VITALS: BP 112/65; RESP 18
[2017-01-18] MEDS: ATORVASTATIN 80 MG TAB PO SCH (20:47)
[2017-01-18] MEDS: DOCUSATE SODIUM 100 MG CAP PO SCH (20:47)
[2017-01-18] MEDS: SENNA TAB PO SCH (20:47)
[2017-01-18] MEDS: HEPARIN 5,000 UNIT/0.5 ML SYG SC SCH (21:04)
[2017-01-19] MEDS: ZOLPIDEM 5 MG TAB PO PRN (01:14)
[2017-01-19] MEDS: PANTOPRAZOLE (EC) 40 MG TAB PO SCH (06:33)
[2017-01-19 06:51] LABS: ADD SCAN DIFF NO
[2017-01-19 06:56] LABS: BASOPHIL # 0.1 10^3/ul (0.0-0.1); BASOPHILS % 0.6 % (0.0-2.0); EOSINOPHILS # 0.4 10^3/ul (0.0-0.5); EOSINOPHILS % 5.2 % (0.0-7.0); HEMATOCRIT 45.3 % (42.0-52.0); HEMOGLOBIN 15.1 g/dl (14.0-18.0); LYMPHOCYTES # 2.6 10^3/ul (0.8-2.9); LYMPHOCYTES % 31.3 % (15.0-51.0); MEAN CORPUSCULAR HEMOGLOBIN 29.4 pg (29.0-33.0); MEAN CORPUSCULAR HGB CONC 33.3 g/dl (32.0-37.0); MEAN CORPUSCULAR VOLUME 88.3 fl (82.0-101.0); MEAN PLATELET VOLUME 9.2 fl (7.4-10.4); MONOCYTE # 0.7 10^3/ul (0.3-0.9); MONOCYTES % 8.9 % (0.0-11.0); NEUTROPHIL # 4.4 10^3/ul (1.6-7.5); NEUTROPHILS % 53.6 % (39.0-77.0); PLATELET COUNT 387 10^3/UL (140-415); RED BLOOD COUNT 5.13 10^6/ul (4.70-6.10); WHITE BLOOD COUNT 8.2 10^3/ul (4.8-10.8)
[2017-01-19 07:04] LABS: POTASSIUM 4.3 mmol/L (3.5-5.1)
[2017-01-19 07:06] LABS: CREATININE 0.83 mg/dl (0.61-1.24)
[2017-01-19 07:07] LABS: ALBUMIN/GLOBULIN RATIO 1.21; BILIRUBIN,INDIRECT 0.2 mg/dl (0-1.1); BILIRUBIN,TOTAL 0.2 mg/dl (0.2-1.3); CALCIUM 9.4 mg/dl (8.4-10.2); TOTAL PROTEIN 7.3 g/dl (6.1-8.1)
[2017-01-19 07:30] VITALS: BP 131/70; RESP 20
[2017-01-19] MEDS: ASPIRIN (EC) 325 MG TAB PO SCH (09:12)
[2017-01-19] MEDS: DOCUSATE SODIUM 100 MG CAP PO SCH ×2 (09:12→21:03)
[2017-01-19] MEDS: HEPARIN 5,000 UNIT/0.5 ML SYG SC SCH ×2 (09:17→22:34)
[2017-01-19] MEDS: HYDROCODONE/APAP (5/325) TAB PO PRN (09:18)
--- NOTE | 2017-01-19 10:07 | CONS ---
DATE OF ADMISSION: 01/18/2017 DATE OF CONSULTATION: 01/19/2017 REHABILITATION IMPAIRMENT CATEGORY: Left internal capsule infarct cerebrovascular accident, with ri ght-sided weakness. ACTIVE COMORBIDITIES: 1. Hypertension. 2. Impairments in self-care, mobility and cognition. HISTORY OF PRESENT ILLNESS: The patient is a pleasant 66-year-old gentleman with a history of hyper tension, who was admitted with right-sided weakness. Workup did reveal a left posterior limb recording studio intern al capsule ischemic infarct. The patient has been noted to have significant impairments in self-car e and mobility and has been cleared to transfer to the rehabilitation unit for comprehensive interdi sciplinary rehab care. FUNCTIONAL HISTORY: Prior to recent events, he was independent in self-care tasks and mobility. Cu rrently the patient requires moderate assist for self-care and mobility tasks. SOCIAL HISTORY: The patient lives at home and hopes to return there upon discharge. PAST MEDICAL HISTORY: Hypertension. CURRENT MEDICATIONS: 1. Ecotrin 325 p.o. daily. 2. Lipitor 80 mg p.o. at bedtime. 3. Colace 100 mg b.i.d. p.r.n. 4. Heparin subcutaneous. 5. [place] p.r.n. 6. Protonix 40 mg p.o. daily. ALLERGIES: PATIENT WITH NO KNOWN DRUG ALLERGIES. PHYSICAL EXAMINATION: VITAL SIGNS: The patient is currently afebrile, with stable vital signs. HEENT: Extraocular motions intact. Oropharynx clear. NECK: Supple. LUNGS: Clear anteriorly. CARDIAC: S1, S2. ABDOMEN: Soft, nontender. Positive bowel sounds. NEUROLOGIC: He is awake, alert and oriented to person, hospital and month. He will follow simple 1 -step commands. He demonstrates good strength in the left upper and lower extremities. He has 2- s trength in the right upper extremity, 3+ strength in the right lower extremity, impaired dorsiflexio n. PLAN: The patient has been admitted for comprehensive interdisciplinary acute rehab and is anticipa nancy to tolerate 3 hours of daily therapy in divided doses for at least 5/7 days a week. The treatme nt plan will include: 1. Physical therapy to focus on bed mobility, transfers, and household ambulation, with the goal of having the patient reach a standby assist level. 2. Occupational therapy to focus on hygiene, grooming, dressing, bathing, and toileting activities, with the goal of having the patient reach a standby assist level. 3. Rehabilitation nursing for carryover of therapeutic interventions, with the goal of continent of bowel and bladder, and the goal of patient education with regards to the aforementioned issues. 4. Speech therapy for full cognitive assessment and retraining, in addition to dysphagia evaluation , with the goal of having the patient return to baseline cognition. REHABILITATION BARRIER: Weakness. INTERVENTION FOR BARRIER: Comprehensive interdisciplinary approach. ESTIMATED LENGTH OF STAY: 14 days. DISPOSITION GOAL: Home. I acknowledge that I performed a full physical examination on this patient within 24 hours of admiss ion to the rehabilitation unit and believe the patient is a good candidate for comprehensive interdi sciplinary rehab care and is anticipated to make reasonable goals in a reasonable period of time, as outlined above. Dictated By: GERALD TROTTER/JUDY Conf#: [id number] DID#: [id number]
[2017-01-19 19:21] VITALS: BP 115/64; RESP 18
[2017-01-19] MEDS: ATORVASTATIN 80 MG TAB PO SCH (21:03)
[2017-01-19] MEDS: SENNA TAB PO SCH (21:03)
[2017-01-20] MEDS: PANTOPRAZOLE (EC) 40 MG TAB PO SCH (06:15)
[2017-01-20 08:00] VITALS: BP 124/64; PULSE 57; RESP 18
[2017-01-20] MEDS: ASPIRIN (EC) 325 MG TAB PO SCH (08:47)
[2017-01-20] MEDS: DOCUSATE SODIUM 100 MG CAP PO SCH ×2 (08:47→21:13)
[2017-01-20] MEDS: HEPARIN 5,000 UNIT/0.5 ML SYG SC SCH ×2 (08:54→21:22)
[2017-01-20 19:23] VITALS: BP 107/59; RESP 20
[2017-01-20] MEDS: SENNA TAB PO SCH (21:13)
[2017-01-20] MEDS: ATORVASTATIN 80 MG TAB PO SCH (21:13)
[2017-01-21] MEDS: PANTOPRAZOLE (EC) 40 MG TAB PO SCH (06:34)
[2017-01-21 07:30] VITALS: BP 104/57; RESP 18
[2017-01-21] MEDS: DOCUSATE SODIUM 100 MG CAP PO SCH ×2 (09:49→21:22)
[2017-01-21] MEDS: ASPIRIN (EC) 325 MG TAB PO SCH (09:49)
[2017-01-21] MEDS: HEPARIN 5,000 UNIT/0.5 ML SYG SC SCH ×2 (09:52→21:23)
--- NOTE | 2017-01-21 11:35 | CONS ---
Date/Time of Note Date/Time of Note DATE: 01/21/17 TIME: 11:34 Consult Date/Type/Reason Admit Date/Time Jan 18, 2017 at 15:00 Initial Consult Date Subjective Comfortable Objective Vital Signs Date Time Temp Pulse Resp B/P Pulse Ox O2 Delivery O2 Flow Rate FiO2 01/21/17 07:30 97.9 56 18 104/57 96 01/20/17 08:00 Room Air Intake and Output 01/20/17 01/20/17 01/21/17 15:00 23:00 07:00 Intake Total 600 ml 550 ml Output Total 1250 ml 600 ml 800 ml Balance -1250 ml 0 ml -250 ml INTERDISCIPLINARY TEAM CONFERENCE BOWEL- Cont BLADDER-Cont SKIN- intact OT- DRESSING-min/mod BATHING-min/mod TOILETING-min/mod PT- BED MOBILITY-mod TRANSFERS-mod AMBULATION-mod 40 feet SPEECH- COGNITION-mi A/P- Interdisciplinary team conference held today. Please see interdisciplinary sheet. Working toward d.c. on 02/01 with post discharge follow up of physical therapy, occupational therapy. Results/Medications Result Diagram: 01/19/17 0623 01/19/17 0623 Medications Current Medications Docusate Sodium (Colace) 100 mg BID PO Last administered on 01/21/17 09:49; Admin Dose 100 MG; Start 01/18/17 at 21:00 Senna (Senokot) 1 tab HS PO Last administered on 01/20/17 21:13; Admin Dose 1 TAB; Start 01/18/17 at 21:00 Bisacodyl (Dulcolax Supp) 10 mg DAILY PRN [place] CONSTIPATION; Start 01/18/17 at 16: 00 Magnesium Hydroxide (Milk Of Mag) 30 ml BID PRN PO CONSTIPATION; Start 01/18/17 at 16:00 Lactulose (Enulose) 20 gm DAILY PRN PO CONSTIPATION; Start 01/18/17 at 16:00 Morphine Sulfate (morphine) 2 mg Q4H PRN IV SEVERE PAIN LEVEL 7-10; Start at 16:00 Ondansetron HCl (Zofran Inj) 4 mg Q6H PRN IV NAUSEA AND/OR VOMITING; Start 01/18 at 16:00 Sodium Biphosphate/ Sodium Phosphate (Fleet Enema) 133 ml DAILY PRN [place] CONSTIPATION; Start 01/18/17 at 16:00 Pantoprazole (Protonix Tab) 40 mg DAILY@06 PO Last administered on 01/21/17 06: 34; Admin Dose 40 MG; Start 01/19/17 at 06:00 Nitroglycerin (Nitroglycerin (Sl Tab) 0.4 Mg) 1 tab Q5M PRN SL ANGINA; Start at 16:00 Acetaminophen (Tylenol Tab) 650 mg Q6H PRN PO PAIN LEVEL 1-3 OR FEVER; Start at 16:00 Acetaminophen/ Hydrocodone Bitart ([place] (5/325)) 1 tab Q6H PRN PO MODERATE PAIN LEVEL 4-6 Last administered on 01/19/17 09:18; Admin Dose 1 TAB; Start 01/18 at 16:00 Heparin Sodium (Porcine) (Heparin (5000 Units/0.5 ml)) 5,000 unit Q12 SC Last administered on 01/21/17 09:52; Admin Dose 5,000 UNIT; Start 01/18/17 at 21:00 Lorazepam (Ativan) 0.5 mg Q6H PRN IV ANXIETY; Start 01/18/17 at 16:00 Hydralazine HCl (Apresoline) 10 mg Q6H PRN IV ELEVATED BLOOD PRESSURE; Start at 16:00 Aspirin (Ecotrin) 325 mg DAILY PO Last administered on 01/21/17 09:49; Admin Dose 325 MG; Start 01/19/17 at 09:00 Atorvastatin Calcium (Lipitor) 80 mg HS PO Last administered on 01/20/17 21:13 ; Admin Dose 80 MG; Start 01/18/17 at 21:00 GERALD AMEZQUITA MD Jan 21, 2017 11:35
--- NOTE | 2017-01-21 17:17 | CONS ---
DATE OF ADMISSION: 01/18/2017 DATE OF CONSULTATION: 01/21/2017 TYPE OF CONSULTATION: Internal medicine. 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 The patient currently remains stable. No new events sin ce transfer. PAST MEDICAL HISTORY: Includes recent CVA, hypertension, hyperlipidemia. MEDICATIONS: Include: 1. Ecotrin. 2. Lipitor. 3. Colace. 4. [place]. ALLERGIES: NONE. SOCIAL HISTORY: Nonsmoker, no alcohol, no history of drug use. FAMILY HISTORY: Noncontributory. SYSTEMS REVIEW: A 12-point review of systems negative other than that mentioned above. PHYSICAL EXAMINATION: GENERAL: Elderly-appearing gentleman, comfortable at rest. No acute distress. VITAL SIGNS: Currently afebrile, pulse is 56, blood pressure 104/67, O2 saturation 96% on room air. NECK: Supple. No JVD or lymphadenopathy. CARDIAC: S1, S2. No added sounds or murmurs. CHEST: Diminished air entry bilaterally. ABDOMEN: Soft, nontender. No guarding or rebound. EXTREMITIES: No cyanosis, clubbing, edema. NEUROLOGIC: Diminished strength, right leg. IMPRESSION: 1. Recent cerebrovascular accident. 2. Hypertension. 3. Hyperlipidemia. PLAN: 1. Continue physical therapy. 2. Blood pressure control. 3. Aspirin and statin. 4. DVT and GI prophylaxis. Dictated By: KIERA SCHWARZ/JUDY Conf#: [id number] DID#: [id number]
[2017-01-21 19:36] VITALS: BP 118/58; RESP 20
[2017-01-21] MEDS: SENNA TAB PO SCH (21:22)
[2017-01-21] MEDS: ATORVASTATIN 80 MG TAB PO SCH (21:22)
[2017-01-22] MEDS: PANTOPRAZOLE (EC) 40 MG TAB PO SCH (05:42)
[2017-01-22] MEDS: HEPARIN 5,000 UNIT/0.5 ML SYG SC SCH ×2 (08:23→20:30)
[2017-01-22] MEDS: ASPIRIN (EC) 325 MG TAB PO SCH (08:23)
[2017-01-22] MEDS: DOCUSATE SODIUM 100 MG CAP PO SCH ×2 (08:23→20:30)
[2017-01-22 08:25] VITALS: BP 119/64; RESP 18
--- NOTE | 2017-01-22 12:28 | CONS ---
Date/Time of Note Date/Time of Note DATE: 01/22/17 TIME: 12:28 Consult Date/Type/Reason Admit Date/Time Jan 18, 2017 at 15:00 Subjective Motivated Objective pulm-cta min/mod ambulation Vital Signs Date Time Temp Pulse Resp B/P Pulse Ox O2 Delivery O2 Flow Rate FiO2 01/22/17 08:25 97.9 59 18 119/64 97 01/20/17 08:00 Room Air Intake and Output 01/21/17 01/21/17 01/22/17 15:00 23:00 07:00 Intake Total 660 ml Output Total 1420 ml Balance -760 ml Results/Medications Result Diagram: 01/19/1762201/19/17622 Medications Current Medications Docusate Sodium (Colace) 100 mg BID PO Last administered on 01/22/17 08:23; Admin Dose 100 MG; Start 01/18/17 at 21:00 Senna (Senokot) 1 tab HS PO Last administered on 01/21/17 21:22; Admin Dose 1 TAB; Start 01/18/17 at 21:00 Bisacodyl (Dulcolax Supp) 10 mg DAILY PRN [place] CONSTIPATION; Start 01/18/17 at 16: 00 Magnesium Hydroxide (Milk Of Mag) 30 ml BID PRN PO CONSTIPATION; Start 01/18/17 at 16:00 Lactulose (Enulose) 20 gm DAILY PRN PO CONSTIPATION; Start 01/18/17 at 16:00 Morphine Sulfate (morphine) 2 mg Q4H PRN IV SEVERE PAIN LEVEL 7-10; Start at 16:00 Ondansetron HCl (Zofran Inj) 4 mg Q6H PRN IV NAUSEA AND/OR VOMITING; Start 01/18 at 16:00 Sodium Biphosphate/ Sodium Phosphate (Fleet Enema) 133 ml DAILY PRN [place] CONSTIPATION; Start 01/18/17 at 16:00 Pantoprazole (Protonix Tab) 40 mg DAILY@06 PO Last administered on 01/22/17 05: 42; Admin Dose 40 MG; Start 01/19/17 at 06:00 Nitroglycerin (Nitroglycerin (Sl Tab) 0.4 Mg) 1 tab Q5M PRN SL ANGINA; Start at 16:00 Acetaminophen (Tylenol Tab) 650 mg Q6H PRN PO PAIN LEVEL 1-3 OR FEVER; Start at 16:00 Acetaminophen/ Hydrocodone Bitart ([place] (5/325)) 1 tab Q6H PRN PO MODERATE PAIN LEVEL 4-6 Last administered on 01/19/17 09:18; Admin Dose 1 TAB; Start 01/18 at 16:00 Heparin Sodium (Porcine) (Heparin (5000 Units/0.5 ml)) 5,000 unit Q12 SC Last administered on 01/22/17 08:23; Admin Dose 5,000 UNIT; Start 01/18/17 at 21:00 Lorazepam (Ativan) 0.5 mg Q6H PRN IV ANXIETY; Start 01/18/17 at 16:00 Hydralazine HCl (Apresoline) 10 mg Q6H PRN IV ELEVATED BLOOD PRESSURE; Start at 16:00 Aspirin (Ecotrin) 325 mg DAILY PO Last administered on 01/22/17 08:23; Admin Dose 325 MG; Start 01/19/17 at 09:00 Atorvastatin Calcium (Lipitor) 80 mg HS PO Last administered on 01/21/17 21:22 ; Admin Dose 80 MG; Start 01/18/17 at 21:00 Assessment/Plan Additional Assessment/Plan Rehab- Left internal capsule infarct cerebrovascular accident, with right-sided weakness. Continue rehab therapy Hypertension. GERALD AMEZQUITA MD Jan 22, 2017 12:28
--- NOTE | 2017-01-22 17:30 | PN ---
DATE: SUBJECTIVE: The patient remains stable this morning. No new events. Continues physical therapy. OBJECTIVE: VITAL SIGNS: Temperature 97, pulse 59, blood pressure 119/64, O2 saturation 96% on FIO2 of room air . NECK: Supple. No JVD or lymphadenopathy. CARDIAC: S1, S2. No added sounds or murmurs. CHEST: Diminished air entry bilaterally. ABDOMEN: Soft, nontender. No guarding or rebound. EXTREMITIES: No cyanosis, clubbing, edema. NEUROLOGIC: Mild hemiplegia. IMPRESSION: 1. Recent cerebrovascular accident. 2. Hypertension. 3. Hyperlipidemia. PLAN: 1. Continue blood pressure management. 2. Continue aspirin. 3. Continue physical therapy. Dictated By: KIERA SCHWARZ/JUDY Conf#: [id number] DID#: [id number]
[2017-01-22 19:30] VITALS: BP 107/62; RESP 19
[2017-01-22] MEDS: ATORVASTATIN 80 MG TAB PO SCH (20:26)
[2017-01-22] MEDS: SENNA TAB PO SCH (20:30)
[2017-01-23] MEDS: PANTOPRAZOLE (EC) 40 MG TAB PO SCH (05:38)
[2017-01-23 07:55] VITALS: BP 103/57; RESP 18
[2017-01-23] MEDS: ASPIRIN (EC) 325 MG TAB PO SCH (08:42)
[2017-01-23] MEDS: DOCUSATE SODIUM 100 MG CAP PO SCH ×2 (08:42→21:00)
[2017-01-23] MEDS: HEPARIN 5,000 UNIT/0.5 ML SYG SC SCH ×2 (08:45→20:42)
--- NOTE | 2017-01-23 12:26 | CONS ---
Date/Time of Note Date/Time of Note DATE: 01/23/17 TIME: 12:25 Consult Date/Type/Reason Admit Date/Time Jan 18, 2017 at 15:00 Subjective doing well Objective pulm-cta min/mod ambulation Vital Signs Date Time Temp Pulse Resp B/P Pulse Ox O2 Delivery O2 Flow Rate FiO2 01/23/17 07:55 97.9 66 18 103/57 97 01/20/17 08:00 Room Air Intake and Output 01/22/17 01/22/17 01/23/17 15:00 23:00 07:00 Intake Total 720 ml 840 ml 400 ml Output Total 600 ml 600 ml Balance 720 ml 240 ml -200 ml Results/Medications Result Diagram: 01/19/1762201/19/17622 Medications Current Medications Docusate Sodium (Colace) 100 mg BID PO Last administered on 01/23/17 08:42; Admin Dose 100 MG; Start 01/18/17 at 21:00 Senna (Senokot) 1 tab HS PO Last administered on 01/21/17 21:22; Admin Dose 1 TAB; Start 01/18/17 at 21:00 Bisacodyl (Dulcolax Supp) [address] CONSTIPATION; Start 01/18/17 at 16: 00 Magnesium Hydroxide (Milk Of Mag) 30 ml BID PRN PO CONSTIPATION; Start 01/18/17 at 16:00 Lactulose (Enulose) 20 gm DAILY PRN PO CONSTIPATION; Start 01/18/17 at 16:00 Morphine Sulfate (morphine) 2 mg Q4H PRN IV SEVERE PAIN LEVEL 7-10; Start at 16:00 Ondansetron HCl (Zofran Inj) 4 mg Q6H PRN IV NAUSEA AND/OR VOMITING; Start 01/18 at 16:00 Sodium Biphosphate/ Sodium Phosphate (Fleet Enema) [address] CONSTIPATION; Start 01/18/17 at 16:00 Pantoprazole (Protonix Tab) 40 mg DAILY@06 PO Last administered on 01/23/17 05: 38; Admin Dose 40 MG; Start 01/19/17 at 06:00 Nitroglycerin (Nitroglycerin (Sl Tab) 0.4 Mg) 1 tab Q5M PRN [place] ANGINA; Start at 16:00 Acetaminophen (Tylenol Tab) 650 mg Q6H PRN PO PAIN LEVEL 1-3 OR FEVER; Start at 16:00 Acetaminophen/ Hydrocodone Bitart ([place] (5/325)) 1 tab Q6H PRN PO MODERATE PAIN LEVEL 4-6 Last administered on 01/19/17 09:18; Admin Dose 1 TAB; Start 01/18 at 16:00 Heparin Sodium (Porcine) (Heparin (5000 Units/0.5 ml)) 5,000 unit Q12 SC Last administered on 01/23/17 08:45; Admin Dose 5,000 UNIT; Start 01/18/17 at 21:00 Lorazepam (Ativan) 0.5 mg Q6H PRN IV ANXIETY; Start 01/18/17 at 16:00 Hydralazine HCl (Apresoline) 10 mg Q6H PRN IV ELEVATED BLOOD PRESSURE; Start at 16:00 Aspirin (Ecotrin) 325 mg DAILY PO Last administered on 01/23/17 08:42; Admin Dose 325 MG; Start 01/19/17 at 09:00 Atorvastatin Calcium (Lipitor) 80 mg HS PO Last administered on 01/22/17 20:26 ; Admin Dose 80 MG; Start 01/18/17 at 21:00 Assessment/Plan Additional Assessment/Plan Rehab- Left internal capsule infarct cerebrovascular accident, with right-sided weakness. Continue rehab program Hypertension. GERALD AMEZQUITA MD Jan 23, 2017 12:26
--- NOTE | 2017-01-23 19:43 | CONS ---
DATE OF ADMISSION: 01/18/2017 DATE OF CONSULTATION: 01/23/2017 TYPE OF CONSULTATION: Psychological. REFERRING PHYSICIAN: Zeferino Davison MD CONSULTING PSYCHOLOGIST: Lucinda Valladares, PhD REASON FOR CONSULTATION: This consultation was requested by Dr. Margarita Davison in order to evaluate the cognitive and emotional functioning of this patient related to his present medical condition. HISTORY OF PRESENT ILLNESS: The patient is a 66-year-old male. He has a history of hypertension an d was admitted with right-sided weakness. The workup revealed a left posterior limb internal capsul e ischemic infarct. The patient was cleared medically and then transferred to the [facility] for acute multidisciplinary rehabilitation care. Prior to this event, the patient was independen t of self-care tasks and mobility. The patient is motivated to get better and does want to improve his level of functioning. FAMILY AND SOCIAL HISTORY: The patient lives alone. The patient reports that he rents a room from somebody who owns a home. The patient has been there only 3 months. He reports that he recently li stew in [place] for the last 2 years before that. The patient does have a brother in [facility] and 2 sisters in [facility] but no relatives here. MEDICATIONS: The patient is currently on Ativan 0.5 mg q.6 hours p.r.n. SUBSTANCE USE: The patient reports that he did smoke 1 pack a day of cigarettes. The patient repor ts that he is now not smoking and does not intend to start again after discharge. The patient repor ts that he drinks some beer and wine once in a while. MENTAL STATUS EXAMINATION: APPEARANCE: The patient was seen in his wheelchair. He appeared of average height and weight. The patient is right-handed. The patient does have right side paralysis from his stroke. BEHAVIOR: The patient was cooperative during the consultation. The patient did attempt to answer a ll questions presented to him by the interviewer. MOOD AND AFFECT: The patient's mood appears to be slightly depressed. Affect does appear to be sli ghtly anxious. The patient reports that he is very frustrated about his present medical condition. PERCEPTION: The patient reports no hallucinations or delusions. The patient was alert to person, p lace, situation and time. MEMORY AND COGNITION: The patient's memory and cognition were just very slightly impaired given the fact that he had just had a stroke. The patient was able to say the name of the hospital. The pat brenton was able to say the month and the year. The patient was able to say who the President of the [facility] is. He could not say who the governor of the state is or who the mayor of the city is. The patient could not spell "world" backwards but got close. The patient was able to do 2 serial- 7 subtractions from 100 and then made an error. Overall, the patient's functioning is just slightly impaired, likely as a result of his stroke. INTELLIGENCE: Intelligence appears to fall in the average range when he is functioning well. INSIGHT: Fair. JUDGMENT: Fair. THOUGHT CONTENT: The patient is concerned about his present medical condition. The patient does wa nt to improve and return to his previous level of functioning. The patient is concerned that he may not be able to do that. There is some question whether or not the patient may need more help than he can get in living on his own. DISCUSSION: The patient can likely benefit from some cognitive/behavioral psychotherapy while he is on the unit. This psychotherapy would focus on his underlying frustration about his medical proble ms but also try to work with his underlying cognitive deficit and his mood. DIAGNOSTIC IMPRESSION: 1. 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 2. 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 Thank you very much, Dr. Margarita Davison, for referring this individual. Please do not hesitate to ca ll if you have additional questions. Dictated By: LUCINDA VALLADARES PHD CAMILO/JUDY Conf#: [id number] DID#: [id number]
[2017-01-23 20:00] VITALS: BP 119/63; RESP 18
[2017-01-23] MEDS: ATORVASTATIN 80 MG TAB PO SCH (20:36)
[2017-01-23] MEDS: SENNA TAB PO SCH (21:00)
[2017-01-24] MEDS: PANTOPRAZOLE (EC) 40 MG TAB PO SCH (06:06)
[2017-01-24 07:30] VITALS: BP 118/70; RESP 18
[2017-01-24] MEDS: ASPIRIN (EC) 325 MG TAB PO SCH (09:05)
[2017-01-24] MEDS: DOCUSATE SODIUM 100 MG CAP PO SCH ×2 (09:05→20:31)
[2017-01-24] MEDS: HEPARIN 5,000 UNIT/0.5 ML SYG SC SCH ×2 (09:05→20:45)
--- NOTE | 2017-01-24 13:22 | PN ---
DATE: 01/24/2017 REASON FOR FOLLOWUP: CVA. SUBJECTIVE: The patient remains stable overnight, no new events. PHYSICAL EXAMINATION: VITAL SIGNS: Temperature 98, pulse 58, blood pressure 118/70, O2 saturation 96% on room air. NECK: Supple. No JVD or lymphadenopathy. CARDIAC: S1, S2, no added sounds or murmurs. CHEST: Diminished air entry bilaterally. ABDOMEN: Soft, nontender. No guarding or rebound. EXTREMITIES: No cyanosis, clubbing or edema. NEUROLOGIC: Generalized weakness. LABORATORY DATA: Pending at time of this dictation. IMPRESSION: 1. Recent cerebrovascular accident. 2. History of hypertension. 3. Hyperlipidemia. PLAN: 1. Continue physical therapy. 2. Continue current antihypertensives of hydralazine p.r.n. 3. Continue Lipitor for hyperlipidemia. 4. Continue aspirin and DVT and GI prophylaxis. Dictated By: KIERA SCHWARZ/JUDY Conf#: [id number] DID#: [id number]
[2017-01-24 20:00] VITALS: BP 106/56; RESP 18
[2017-01-24] MEDS: ATORVASTATIN 80 MG TAB PO SCH (20:31)
[2017-01-24] MEDS: ACETAMINOPHEN 325 MG TAB PO PRN (20:31)
[2017-01-24] MEDS: ZOLPIDEM 5 MG TAB PO PRN (20:31)
[2017-01-24] MEDS: SENNA TAB PO SCH (20:32)
[2017-01-25] MEDS: PANTOPRAZOLE (EC) 40 MG TAB PO SCH (06:11)
[2017-01-25 07:30] VITALS: BP 120/90; RESP 18
[2017-01-25] MEDS: DOCUSATE SODIUM 100 MG CAP PO SCH ×2 (08:35→20:46)
[2017-01-25] MEDS: ASPIRIN (EC) 325 MG TAB PO SCH (08:35)
[2017-01-25] MEDS: HEPARIN 5,000 UNIT/0.5 ML SYG SC SCH ×2 (08:36→20:50)
--- NOTE | 2017-01-25 12:09 | CONS ---
Date/Time of Note Date/Time of Note DATE: 01/25/17 TIME: 12:09 Consult Date/Type/Reason Admit Date/Time Jan 18, 2017 at 15:00 Subjective comfortable Objective pulm-cta min ambulation Vital Signs Date Time Temp Pulse Resp B/P Pulse Ox O2 Delivery O2 Flow Rate FiO2 01/25/17 07:30 98.0 69 18 120/90 95 Intake and Output 01/24/17 01/24/17 01/25/17 15:00 23:00 07:00 Intake Total 840 ml 350 ml Output Total 800 ml 700 ml Balance 40 ml -350 ml Results/Medications Medications Current Medications Docusate Sodium (Colace) 100 mg BID PO Last administered on 01/25/17 08:35; Admin Dose 100 MG; Start 01/18/17 at 21:00 Senna (Senokot) 1 tab HS PO Last administered on 01/21/17 21:22; Admin Dose 1 TAB; Start 01/18/17 at 21:00 Bisacodyl (Dulcolax Supp) 10 mg DAILY PRN [place] CONSTIPATION; Start 01/18/17 at 16: 00 Magnesium Hydroxide (Milk Of Mag) 30 ml BID PRN PO CONSTIPATION; Start 01/18/17 at 16:00 Lactulose (Enulose) 20 gm DAILY PRN PO CONSTIPATION; Start 01/18/17 at 16:00 Morphine Sulfate (morphine) 2 mg Q4H PRN IV SEVERE PAIN LEVEL 7-10; Start at 16:00 Ondansetron HCl (Zofran Inj) 4 mg Q6H PRN IV NAUSEA AND/OR VOMITING; Start 01/18 at 16:00 Sodium Biphosphate/ Sodium Phosphate (Fleet Enema) 133 ml DAILY PRN [place] CONSTIPATION; Start 01/18/17 at 16:00 Pantoprazole (Protonix Tab) 40 mg DAILY@06 PO Last administered on 01/25/17 06 :11; Admin Dose 40 MG; Start 01/19/17 at 06:00 Nitroglycerin (Nitroglycerin (Sl Tab) 0.4 Mg) 1 tab Q5M PRN SL ANGINA; Start at 16:00 Acetaminophen (Tylenol Tab) 650 mg Q6H PRN PO PAIN LEVEL 1-3 OR FEVER Last administered on 01/24/17 20:31; Admin Dose 650 MG; Start 01/18/17 at 16:00 Acetaminophen/ Hydrocodone Bitart ([place] (5/325)) 1 tab Q6H PRN PO MODERATE PAIN LEVEL 4-6 Last administered on 01/19/17 09:18; Admin Dose 1 TAB; Start 01/18 at 16:00 Heparin Sodium (Porcine) (Heparin (5000 Units/0.5 ml)) 5,000 unit Q12 SC Last administered on 01/25/17 08:36; Admin Dose 5,000 UNIT; Start 01/18/17 at 21:00 Lorazepam (Ativan) 0.5 mg Q6H PRN IV ANXIETY; Start 01/18/17 at 16:00 Hydralazine HCl (Apresoline) 10 mg Q6H PRN IV ELEVATED BLOOD PRESSURE; Start at 16:00 Aspirin (Ecotrin) 325 mg DAILY PO Last administered on 01/25/17 08:35; Admin Dose 325 MG; Start 01/19/17 at 09:00 Atorvastatin Calcium (Lipitor) 80 mg HS PO Last administered on 01/24/17 20:31 ; Admin Dose 80 MG; Start 01/18/17 at 21:00 Assessment/Plan Additional Assessment/Plan Rehab- Left internal capsule infarct cerebrovascular accident, with right-sided weakness. Continue rehab program, steady progress Hypertension. GERALD AMEZQUITA MD Jan 25, 2017 12:09
--- NOTE | 2017-01-25 15:58 | PN ---
DATE: 01/25/2017 SUBJECTIVE: Followup note on Mr. Rai who is stable this morning. Continues physical therapy , no complications overnight. VITAL SIGNS: Temperature 98, pulse is 69, blood pressure 120/90, O2 saturation 95% on room air. NECK: Supple. No JVD or lymphadenopathy. CARDIAC: S1, S2, no added sounds or murmurs. CHEST: Diminished air entry bilaterally. No rales or wheezes. ABDOMEN: Soft, nontender. No guarding or rebound. EXTREMITIES: No cyanosis, clubbing, edema. NEUROLOGIC: Persistent right-sided weakness. IMPRESSION AND PLAN: 1. Left internal capsule infarct with subsequent hemiplegia. 2. History of hypertension. PLAN: 1. Continue physical therapy. 2. Continue antihypertensives. 3. Continue statin. 4. Continue DVT and GI prophylaxis. Dictated By: KIERA SCHWARZ/JUDY Conf#: [id number] DID#: [id number]
[2017-01-25 20:38] VITALS: BP 122/69; RESP 18
[2017-01-25] MEDS: ACETAMINOPHEN 325 MG TAB PO PRN (20:46)
[2017-01-25] MEDS: ATORVASTATIN 80 MG TAB PO SCH (20:46)
[2017-01-25] MEDS: SENNA TAB PO SCH (20:46)
[2017-01-26] MEDS: PANTOPRAZOLE (EC) 40 MG TAB PO SCH (06:41)
[2017-01-26 08:00] VITALS: BP 107/62; PULSE 53; RESP 20
[2017-01-26] MEDS: ASPIRIN (EC) 325 MG TAB PO SCH (08:47)
[2017-01-26] MEDS: DOCUSATE SODIUM 100 MG CAP PO SCH ×2 (08:47→20:32)
[2017-01-26] MEDS: HEPARIN 5,000 UNIT/0.5 ML SYG SC SCH ×2 (08:48→20:32)
--- NOTE | 2017-01-26 11:54 | PN ---
Date/Time of Note Date/Time of Note DATE: 01/26/17 TIME: 11:50 Assessment/Plan VTE Prophylaxis VTE Prophylaxis Intervention: heparin Assessment/Plan Assessment/Plan 1. Acute/early subacute ischemic infarct in left posterior limb of internal capsule, with impaired mobility/gait/ADLs/cognition and right sided hemiparesis. Continue PT/OT/ST. Gait 100ft with min assist with RLE AFO. Continue neuromuscular reeducation. Continue secondary stroke prevention. 2. Hypertension. BP controlled, internal medicine managing. Subjective 24 Hr Interval Summary Free Text/Dictation Rehab progress note Subjective: No acute complaints. Nursing reports no acute overnight events. ROS: Denies headache, no dizziness, no new weakness or new paresthesias, no abdominal pain, no chest pain, no shortness of breath. Exam/Review of Systems Vital Signs Vitals Vital Signs Date Time Temp Pulse Resp B/P Pulse Ox O2 Delivery O2 Flow Rate FiO2 01/26/17 08:00 98.0 53 20 107/62 92 Room Air Intake and Output 01/25/17 01/25/17 01/26/17 15:00 23:00 07:00 Intake Total 1420 ml 1080 ml 400 ml Output Total 850 ml 1300 ml 650 ml Balance 570 ml -220 ml -250 ml Exam General: Awake, alert, no acute distress CV: Regular rate, s1s2 Lungs: Diminished breath sounds bilaterally, no wheezing Abdomen soft, nontender, bowel sounds present Extremities: No cyanosis, RLE AFO brace in place Neuro: Right sided hemiparesis. Follows simple commands. Medications Medications Current Medications Docusate Sodium (Colace) 100 mg BID PO Last administered on 01/26/17 08:47; Admin Dose 100 MG; Start 01/18/17 at 21:00 Senna (Senokot) 1 tab HS PO Last administered on 01/21/17 21:22; Admin Dose 1 TAB; Start 01/18/17 at 21:00 Bisacodyl (Dulcolax Supp) 10 mg DAILY PRN [place] CONSTIPATION; Start 01/18/17 at 16: 00 Magnesium Hydroxide (Milk Of Mag) 30 ml BID PRN PO CONSTIPATION; Start 01/18/17 at 16:00 Lactulose (Enulose) 20 gm DAILY PRN PO CONSTIPATION; Start 01/18/17 at 16:00 Morphine Sulfate (morphine) 2 mg Q4H PRN IV SEVERE PAIN LEVEL 7-10; Start at 16:00 Ondansetron HCl (Zofran Inj) 4 mg Q6H PRN IV NAUSEA AND/OR VOMITING; Start 01/18 at 16:00 Sodium Biphosphate/ Sodium Phosphate (Fleet Enema) 133 ml DAILY PRN [place] CONSTIPATION; Start 01/18/17 at 16:00 Pantoprazole (Protonix Tab) 40 mg DAILY@06 PO Last administered on 01/26/17 06 :41; Admin Dose 40 MG; Start 01/19/17 at 06:00 Nitroglycerin (Nitroglycerin (Sl Tab) 0.4 Mg) 1 tab Q5M PRN SL ANGINA; Start at 16:00 Acetaminophen (Tylenol Tab) 650 mg Q6H PRN PO PAIN LEVEL 1-3 OR FEVER Last administered on 01/25/17 20:46; Admin Dose 650 MG; Start 01/18/17 at 16:00 Acetaminophen/ Hydrocodone Bitart ([place] (5/325)) 1 tab Q6H PRN PO MODERATE PAIN LEVEL 4-6 Last administered on 01/19/17 09:18; Admin Dose 1 TAB; Start 01/18 at 16:00 Heparin Sodium (Porcine) (Heparin (5000 Units/0.5 ml)) 5,000 unit Q12 SC Last administered on 01/26/17 08:48; Admin Dose 5,000 UNIT; Start 01/18/17 at 21:00 Lorazepam (Ativan) 0.5 mg Q6H PRN IV ANXIETY; Start 01/18/17 at 16:00 Hydralazine HCl (Apresoline) 10 mg Q6H PRN IV ELEVATED BLOOD PRESSURE; Start at 16:00 Aspirin (Ecotrin) 325 mg DAILY PO Last administered on 01/26/17 08:47; Admin Dose 325 MG; Start 01/19/17 at 09:00 Atorvastatin Calcium (Lipitor) 80 mg HS PO Last administered on 01/25/17 20:46 ; Admin Dose 80 MG; Start 01/18/17 at 21:00 JEANNETTE HASSAN Jan 26, 2017 11:54
[2017-01-26 19:40] VITALS: BP 142/78; RESP 19
[2017-01-26] MEDS: SENNA TAB PO SCH (20:31)
[2017-01-26] MEDS: ATORVASTATIN 80 MG TAB PO SCH (20:32)
[2017-01-27] MEDS: ZOLPIDEM 5 MG TAB PO PRN ×2 (00:40→23:37)
[2017-01-27] MEDS: PANTOPRAZOLE (EC) 40 MG TAB PO SCH (06:45)
[2017-01-27] MEDS: HYDROCODONE/APAP (5/325) TAB PO PRN (06:53)
[2017-01-27 07:17] VITALS: BP 118/71; RESP 18
[2017-01-27] MEDS: DOCUSATE SODIUM 100 MG CAP PO SCH ×2 (08:33→20:38)
[2017-01-27] MEDS: ASPIRIN (EC) 325 MG TAB PO SCH (08:33)
[2017-01-27] MEDS: HEPARIN 5,000 UNIT/0.5 ML SYG SC SCH ×2 (08:34→20:39)
--- NOTE | 2017-01-27 12:12 | PN ---
Date/Time of Note Date/Time of Note DATE: 01/27/17 TIME: 12:10 Assessment/Plan VTE Prophylaxis VTE Prophylaxis Intervention: heparin Lines/Catheters Urinary Cath still in place: No Assessment/Plan Assessment/Plan 1. Acute/early subacute ischemic infract in left posterior limb of internal capsule, with impaired mobility/gait/ADLs/cognition and right sided hemiparesis. Continue PT/OT/ST. Continue gait training with AFO. Continue neuromuscular reeducation/strengthening. Min asist for lower body dressing. Continue secondary stroke prevention. 2. Hypertension. BP controlled, internal medicine managing. Subjective 24 Hr Interval Summary Free Text/Dictation Rehab progress note Subjective: Nursing reports no acute overnight events. Patient without any acute complaints. ROS: Denies headache, no dizziness, no chest pain, no shortness of breath, no abdominal pain, no nausea or vomiting. Exam/Review of Systems Vital Signs Vitals Vital Signs Date Time Temp Pulse Resp B/P Pulse Ox O2 Delivery O2 Flow Rate FiO2 01/27/17 07:17 97.9 63 18 118/71 97 01/26/17 08:00 Room Air Intake and Output 01/26/17 01/26/17 01/27/17 15:00 23:00 07:00 Intake Total 1200 ml 300 ml Output Total 550 ml 1300 ml 650 ml Balance -550 ml -100 ml -350 ml Exam General: Awake, alert, no acute distress CV: Regular rate, s1s2 Lungs: Respirations are nonlabored, no wheezing Abdomen soft, nontender, bowel sounds present Extremities: No cyanosis, no distal edema. Neuro: Right sided hemiparesis stable. Follows simple commands. Medications Medications Current Medications Docusate Sodium (Colace) 100 mg BID PO Last administered on 01/27/17 08:33; Admin Dose 100 MG; Start 01/18/17 at 21:00 Senna (Senokot) 1 tab HS PO Last administered on 01/21/17 21:22; Admin Dose 1 TAB; Start 01/18/17 at 21:00 Bisacodyl (Dulcolax Supp) 10 mg DAILY PRN [place] CONSTIPATION; Start 01/18/17 at 16: 00 Magnesium Hydroxide (Milk Of Mag) 30 ml BID PRN PO CONSTIPATION; Start 01/18/17 at 16:00 Lactulose (Enulose) 20 gm DAILY PRN PO CONSTIPATION; Start 01/18/17 at 16:00 Morphine Sulfate (morphine) 2 mg Q4H PRN IV SEVERE PAIN LEVEL 7-10; Start at 16:00 Ondansetron HCl (Zofran Inj) 4 mg Q6H PRN IV NAUSEA AND/OR VOMITING; Start 01/18 at 16:00 Sodium Biphosphate/ Sodium Phosphate (Fleet Enema) 133 ml DAILY PRN [place] CONSTIPATION; Start 01/18/17 at 16:00 Pantoprazole (Protonix Tab) 40 mg DAILY@06 PO Last administered on 01/27/17 06 :45; Admin Dose 40 MG; Start 01/19/17 at 06:00 Nitroglycerin (Nitroglycerin (Sl Tab) 0.4 Mg) 1 tab Q5M PRN SL ANGINA; Start at 16:00 Acetaminophen (Tylenol Tab) 650 mg Q6H PRN PO PAIN LEVEL 1-3 OR FEVER Last administered on 01/25/17 20:46; Admin Dose 650 MG; Start 01/18/17 at 16:00 Acetaminophen/ Hydrocodone Bitart ([place] (5/325)) 1 tab Q6H PRN PO MODERATE PAIN LEVEL 4-6 Last administered on 01/27/17 06:53; Admin Dose 1 TAB; Start 01/18/17 at 16:00 Heparin Sodium (Porcine) (Heparin (5000 Units/0.5 ml)) 5,000 unit Q12 SC Last administered on 01/27/17 08:34; Admin Dose 5,000 UNIT; Start 01/18/17 at 21:00 Lorazepam (Ativan) 0.5 mg Q6H PRN IV ANXIETY; Start 01/18/17 at 16:00 Hydralazine HCl (Apresoline) 10 mg Q6H PRN IV ELEVATED BLOOD PRESSURE; Start at 16:00 Aspirin (Ecotrin) 325 mg DAILY PO Last administered on 01/27/17 08:33; Admin Dose 325 MG; Start 01/19/17 at 09:00 Atorvastatin Calcium (Lipitor) 80 mg HS PO Last administered on 01/26/17 20:32 ; Admin Dose 80 MG; Start 01/18/17 at 21:00 JEANNETTE HASSAN Jan 27, 2017 12:12
[2017-01-27 20:35] VITALS: BP 118/62; PULSE 59; RESP 16
[2017-01-27] MEDS: ATORVASTATIN 80 MG TAB PO SCH (20:38)
[2017-01-27] MEDS: SENNA TAB PO SCH (20:38)
[2017-01-28] MEDS: PANTOPRAZOLE (EC) 40 MG TAB PO SCH (06:15)
[2017-01-28 07:30] VITALS: BP 113/67; RESP 18
[2017-01-28] MEDS: DOCUSATE SODIUM 100 MG CAP PO SCH ×2 (09:00→21:12)
[2017-01-28] MEDS: HEPARIN 5,000 UNIT/0.5 ML SYG SC SCH ×2 (09:16→21:13)
[2017-01-28] MEDS: ASPIRIN (EC) 325 MG TAB PO SCH (09:17)
--- NOTE | 2017-01-28 12:16 | CONS ---
Date/Time of Note Date/Time of Note DATE: 01/28/17 TIME: 12:14 Consult Date/Type/Reason Admit Date/Time Jan 18, 2017 at 15:00 Subjective Patient in good spirits Objective Vital Signs Date Time Temp Pulse Resp B/P Pulse Ox O2 Delivery O2 Flow Rate FiO2 01/28/17 07:30 98.3 63 18 113/67 97 01/27/17 20:35 Room Air Intake and Output 01/27/17 01/27/17 01/28/17 15:00 23:00 07:00 Intake Total 750 ml 380 ml Output Total 500 ml 200 ml 500 ml Balance 250 ml -200 ml -120 ml INTERDISCIPLINARY TEAM CONFERENCE BOWEL- Cont BLADDER-Cont SKIN- intact OT- DRESSING-sba/min BATHING-sba/min TOILETING-min PT- BED MOBILITY-sba TRANSFERS-sba AMBULATION-min 150 SPEECH- COGNITION-VT A/P- Interdisciplinary team conference held today. Please see interdisciplinary sheet. Working toward d.c. on 02/01 with post discharge follow up of physical therapy, occupational therapy. Results/Medications Medications Current Medications Docusate Sodium (Colace) 100 mg BID PO Last administered on 01/27/17 20:38; Admin Dose 100 MG; Start 01/18/17 at 21:00 Senna (Senokot) 1 tab HS PO Last administered on 01/27/17 20:38; Admin Dose 1 TAB; Start 01/18/17 at 21:00 Bisacodyl (Dulcolax Supp) 10 mg DAILY PRN [place] CONSTIPATION; Start 01/18/17 at 16: 00 Magnesium Hydroxide (Milk Of Mag) 30 ml BID PRN PO CONSTIPATION; Start 01/18/17 at 16:00 Lactulose (Enulose) 20 gm DAILY PRN PO CONSTIPATION; Start 01/18/17 at 16:00 Morphine Sulfate (morphine) 2 mg Q4H PRN IV SEVERE PAIN LEVEL 7-10; Start at 16:00 Ondansetron HCl (Zofran Inj) 4 mg Q6H PRN IV NAUSEA AND/OR VOMITING; Start 01/18 at 16:00 Sodium Biphosphate/ Sodium Phosphate (Fleet Enema) 133 ml DAILY PRN [place] CONSTIPATION; Start 01/18/17 at 16:00 Pantoprazole (Protonix Tab) 40 mg DAILY@06 PO Last administered on 01/28/17 06 :15; Admin Dose 40 MG; Start 01/19/17 at 06:00 Nitroglycerin (Nitroglycerin (Sl Tab) 0.4 Mg) 1 tab Q5M PRN SL ANGINA; Start at 16:00 Acetaminophen (Tylenol Tab) 650 mg Q6H PRN PO PAIN LEVEL 1-3 OR FEVER Last administered on 01/25/17 20:46; Admin Dose 650 MG; Start 01/18/17 at 16:00 Acetaminophen/ Hydrocodone Bitart ([place] (5/325)) 1 tab Q6H PRN PO MODERATE PAIN LEVEL 4-6 Last administered on 01/27/17 06:53; Admin Dose 1 TAB; Start 01/18/17 at 16:00 Heparin Sodium (Porcine) (Heparin (5000 Units/0.5 ml)) 5,000 unit Q12 SC Last administered on 01/28/17 09:16; Admin Dose 5,000 UNIT; Start 01/18/17 at 21:00 Lorazepam (Ativan) 0.5 mg Q6H PRN IV ANXIETY; Start 01/18/17 at 16:00 Hydralazine HCl (Apresoline) 10 mg Q6H PRN IV ELEVATED BLOOD PRESSURE; Start at 16:00 Aspirin (Ecotrin) 325 mg DAILY PO Last administered on 01/28/17 09:17; Admin Dose 325 MG; Start 01/19/17 at 09:00 Atorvastatin Calcium (Lipitor) 80 mg HS PO Last administered on 01/27/17 20:38 ; Admin Dose 80 MG; Start 01/18/17 at 21:00 GERALD AMEZQUITA MD Jan 28, 2017 12:16
--- NOTE | 2017-01-28 17:24 | PN ---
DATE: 01/28/2017 SUBJECTIVE: Patient stable this morning. No events overnight. VITAL SIGNS: Temperature 98, pulse is 63, blood pressure 113/63, O2 saturation 96% on room air. NECK: Supple. No JVD or lymphadenopathy. CARDIAC: S1, S2. No added sounds or murmurs. CHEST: Diminished air entry bilaterally. ABDOMEN: Soft, nontender. No guarding or rebound. EXTREMITIES: No cyanosis, clubbing, edema. NEUROLOGIC: Grossly intact. No focal deficits. LABORATORY DATA: Pending at time of this dictation. IMPRESSION AND PLAN: 1. History of cerebrovascular accident. 2. Hemiplegia. 3. Hyperlipidemia. PLAN: 1. Continue current medications. 2. Physical therapy. 3. Deep venous thrombosis and gastrointestinal prophylaxis. Dictated By: KIERA SCHWARZ/JUDY Conf#: [id number] DID#: [id number]
[2017-01-28 19:38] VITALS: BP 108/65; RESP 18
[2017-01-28] MEDS: SENNA TAB PO SCH (21:00)
[2017-01-28] MEDS: ATORVASTATIN 80 MG TAB PO SCH (21:12)
[2017-01-28] MEDS: ZOLPIDEM 5 MG TAB PO PRN (21:15)
[2017-01-29] MEDS: PANTOPRAZOLE (EC) 40 MG TAB PO SCH (06:58)
[2017-01-29 08:09] VITALS: BP 118/62; RESP 18
[2017-01-29] MEDS: DOCUSATE SODIUM 100 MG CAP PO SCH ×2 (08:21→21:01)
[2017-01-29] MEDS: ASPIRIN (EC) 325 MG TAB PO SCH (08:21)
[2017-01-29] MEDS: HYDROCODONE/APAP (5/325) TAB PO PRN ×2 (08:21→15:20)
[2017-01-29] MEDS: HEPARIN 5,000 UNIT/0.5 ML SYG SC SCH ×2 (08:22→21:02)
--- NOTE | 2017-01-29 11:07 | CONS ---
Date/Time of Note Date/Time of Note DATE: 01/29/17 TIME: 11:05 Consult Date/Type/Reason Admit Date/Time Jan 18, 2017 at 15:00 Subjective Patient reports that the person who reported she would be able to assist him is now unable to help at home Objective pulm-cta abd-soft min assist ambulation Vital Signs Date Time Temp Pulse Resp B/P Pulse Ox O2 Delivery O2 Flow Rate FiO2 01/29/17 08:09 98.3 60 18 118/62 97 01/27/17 20:35 Room Air Intake and Output 01/28/17 01/28/17 01/29/17 15:00 23:00 07:00 Intake Total 1170 ml 350 ml Output Total 1220 ml 700 ml Balance -50 ml -350 ml Results/Medications Medications Current Medications Docusate Sodium (Colace) 100 mg BID PO Last administered on 01/29/17 08:21; Admin Dose 100 MG; Start 01/18/17 at 21:00 Senna (Senokot) 1 tab HS PO Last administered on 01/27/17 20:38; Admin Dose 1 TAB; Start 01/18/17 at 21:00 Bisacodyl (Dulcolax Supp) 10 mg DAILY PRN MD CONSTIPATION; Start 01/18/17 at 16: 00 Magnesium Hydroxide (Milk Of Mag) 30 ml BID PRN PO CONSTIPATION; Start 01/18/17 at 16:00 Lactulose (Enulose) 20 gm DAILY PRN PO CONSTIPATION; Start 01/18/17 at 16:00 Morphine Sulfate (morphine) 2 mg Q4H PRN IV SEVERE PAIN LEVEL 7-10; Start at 16:00 Ondansetron HCl (Zofran Inj) 4 mg Q6H PRN IV NAUSEA AND/OR VOMITING; Start 01/18 at 16:00 Sodium Biphosphate/ Sodium Phosphate (Fleet Enema) 133 ml DAILY PRN MD CONSTIPATION; Start 01/18/17 at 16:00 Pantoprazole (Protonix Tab) 40 mg DAILY@06 PO Last administered on 01/29/17 06 :58; Admin Dose 40 MG; Start 01/19/17 at 06:00 Nitroglycerin (Nitroglycerin (Sl Tab) 0.4 Mg) 1 tab Q5M PRN SL ANGINA; Start 3 /3/17 at 16:00 Acetaminophen (Tylenol Tab) 650 mg Q6H PRN PO PAIN LEVEL 1-3 OR FEVER Last administered on 01/25/17 20:46; Admin Dose 650 MG; Start 01/18/17 at 16:00 Acetaminophen/ Hydrocodone Bitart ([place] (5/325)) 1 tab Q6H PRN PO MODERATE PAIN LEVEL 4-6 Last administered on 01/29/17 08:21; Admin Dose 1 TAB; Start 01/18/17 at 16:00 Heparin Sodium (Porcine) (Heparin (5000 Units/0.5 ml)) 5,000 unit Q12 SC Last administered on 01/29/17 08:22; Admin Dose 5,000 UNIT; Start 01/18/17 at 21:00 Lorazepam (Ativan) 0.5 mg Q6H PRN IV ANXIETY; Start 01/18/17 at 16:00 Hydralazine HCl (Apresoline) 10 mg Q6H PRN IV ELEVATED BLOOD PRESSURE; Start at 16:00 Aspirin (Ecotrin) 325 mg DAILY PO Last administered on 01/29/17 08:21; Admin Dose 325 MG; Start 01/19/17 at 09:00 Atorvastatin Calcium (Lipitor) 80 mg HS PO Last administered on 01/28/17 21:12 ; Admin Dose 80 MG; Start 01/18/17 at 21:00 Assessment/Plan Additional Assessment/Plan Rehab- Left internal capsule infarct cerebrovascular accident, with right-sided weakness. Continue rehab program, steady progress. SW working with patient on dc planning to supervised environment Hypertension. GERALD AMEZQUITA MD Jan 29, 2017 11:06
--- NOTE | 2017-01-29 15:40 | PN ---
DATE: 01/29/2017 PULMONARY FOLLOWUP SUBJECTIVE: The patient remained stable overnight. Continues physical therapy. OBJECTIVE: VITAL SIGNS: Temperature 98, pulse 60, blood pressure 118/62, O2 saturation 96% on room air. NECK: Supple. No JVD or lymphadenopathy. CARDIAC: S1, S2, no added sounds or murmurs. CHEST: Diminished air entry bilaterally. ABDOMEN: Soft, nontender. No guarding or rebound. EXTREMITIES: No cyanosis, clubbing, edema. NEUROLOGIC: Hemiplegia. IMPRESSION: 1. Cerebrovascular accident with hemiplegia. 2. Deconditioning. 3. History of hypertension. PLAN: 1. Repeat labs in a.m. 2. Continue physical therapy. 3. Anticipate discharge soon. Dictated By: KIERA SCHWARZ/JUDY Conf#: [id number] DID#: [id number]
[2017-01-29 19:56] VITALS: BP 130/62; RESP 21
[2017-01-29] MEDS: SENNA TAB PO SCH (21:01)
[2017-01-29] MEDS: ATORVASTATIN 80 MG TAB PO SCH (21:01)
[2017-01-30] MEDS: PANTOPRAZOLE (EC) 40 MG TAB PO SCH (06:41)
[2017-01-30 06:49] LABS: ADD SCAN DIFF NO
[2017-01-30 06:51] LABS: BASOPHIL # 0.1 10^3/ul (0.0-0.1); BASOPHILS % 0.7 % (0.0-2.0); EOSINOPHILS # 0.6 10^3/ul (0.0-0.5); EOSINOPHILS % 7.8 % (0.0-7.0); HEMATOCRIT 44.5 % (42.0-52.0); HEMOGLOBIN 14.9 g/dl (14.0-18.0); LYMPHOCYTES # 2.5 10^3/ul (0.8-2.9); MEAN CORPUSCULAR HGB CONC 33.5 g/dl (32.0-37.0); MEAN CORPUSCULAR VOLUME 89.5 fl (82.0-101.0); MEAN PLATELET VOLUME 9.4 fl (7.4-10.4); MONOCYTE # 0.7 10^3/ul (0.3-0.9); MONOCYTES % 8.6 % (0.0-11.0); NEUTROPHIL # 4.2 10^3/ul (1.6-7.5); NEUTROPHILS % 51.2 % (39.0-77.0); PLATELET COUNT 344 10^3/UL (140-415); RED BLOOD COUNT 4.97 10^6/ul (4.70-6.10); RED CELL DISTRIBUTION WIDTH 12.6 % (11.5-14.5); WHITE BLOOD COUNT 8.2 10^3/ul (4.8-10.8)
[2017-01-30 07:09] LABS: POTASSIUM 4.4 mmol/L (3.5-5.1)
[2017-01-30 07:11] LABS: CREATININE 0.81 mg/dl (0.61-1.24)
[2017-01-30 07:12] LABS: PHOSPHORUS 3.9 mg/dl (2.5-4.9)
[2017-01-30 07:13] LABS: CALCIUM 9.3 mg/dl (8.4-10.2); MAGNESIUM 2.3 mg/dl (1.7-2.5)
[2017-01-30 08:13] VITALS: BP 118/56; RESP 18
[2017-01-30] MEDS: ASPIRIN (EC) 325 MG TAB PO SCH (08:56)
[2017-01-30] MEDS: DOCUSATE SODIUM 100 MG CAP PO SCH ×2 (08:56→21:00)
[2017-01-30] MEDS: HEPARIN 5,000 UNIT/0.5 ML SYG SC SCH ×2 (08:57→21:03)
--- NOTE | 2017-01-30 13:20 | PN ---
Date/Time of Note Date/Time of Note DATE: 01/30/17 TIME: 13:17 Assessment/Plan VTE Prophylaxis VTE Prophylaxis Intervention: heparin Lines/Catheters Urinary Cath still in place: No Assessment/Plan Assessment/Plan 1. Acute/early subacute ischemic infract in left posterior limb of internal capsule, with impaired mobility/gait/ADLs/cognition and right sided hemiparesis. Continue PT/OT/ST. Supervision for bed mobility, contact guard assistance for transfers, stand by assistance for gait 150ft x3 with PFWW. Continue secondary stroke prevention. 2. Hypertension. BP controlled, continue to monitor. Subjective 24 Hr Interval Summary Free Text/Dictation Rehab progress note Subjective: Denies acute complaints. ROS: Denies headache, no dizziness, no shortness of breath, no chest pain, no abdominal pain, no nausea, no constipation. Exam/Review of Systems Vital Signs Vitals Vital Signs Date Time Temp Pulse Resp B/P Pulse Ox O2 Delivery O2 Flow Rate FiO2 01/30/17 08:13 98.1 60 18 118/56 98 01/27/17 20:35 Room Air Intake and Output 01/29/17 01/29/17 01/30/17 15:00 23:00 07:00 Intake Total 1270 ml 360 ml 300 ml Output Total 800 ml 600 ml 900 ml Balance 470 ml -240 ml -600 ml Exam General: Awake, alert, no acute distress CV: Regular rate, s1s2 Lungs: Diminished breath sounds bilaterally, no wheezing Abdomen soft, nontender, bowel sounds present Extremities: No cyanosis. RLE AFO brace in place. Neuro: No focal changes. Right sided hemiparesis. No new sensory changes. Results Result Diagram: 01/30/17 0607 01/30/17 0607 Results 24 hrs Laboratory Tests Test 01/30/17 06:07 Anion Gap 15 Basophils # 0.1 Basophils % 0.7 Blood Urea Nitrogen 18 Calcium Level 9.3 Carbon Dioxide Level 29 Chloride Level 101 Creatinine 0.81 Eosinophils # 0.6 H Eosinophils % 7.8 H Glucose Level 91 Hematocrit 44.5 Hemoglobin 14.9 Lymphocytes # 2.5 Lymphocytes % 31.0 Magnesium Level 2.3 Mean Corpuscular Hemoglobin 30.0 Mean Corpuscular Hemoglobin Concent 33.5 Mean Corpuscular Volume 89.5 Mean Platelet Volume 9.4 Monocytes # 0.7 Monocytes % 8.6 Neutrophils # 4.2 Neutrophils % 51.2 Nucleated Red Blood Cells # 0.0 Nucleated Red Blood Cells % 0.0 Phosphorus Level 3.9 Platelet Count 344 Potassium Level 4.4 Red Blood Count 4.97 Red Cell Distribution Width 12.6 Sodium Level 141 White Blood Count 8.2 Medications Medications Current Medications Docusate Sodium (Colace) 100 mg BID PO Last administered on 01/30/17 08:56; Admin Dose 100 MG; Start 01/18/17 at 21:00 Senna (Senokot) 1 tab HS PO Last administered on 01/29/17 21:01; Admin Dose 1 TAB; Start 01/18/17 at 21:00 Bisacodyl (Dulcolax Supp) 10 mg DAILY PRN PA CONSTIPATION; Start 01/18/17 at 16: 00 Magnesium Hydroxide (Milk Of Mag) 30 ml BID PRN PO CONSTIPATION; Start 01/18/17 at 16:00 Lactulose (Enulose) 20 gm DAILY PRN PO CONSTIPATION; Start 01/18/17 at 16:00 Morphine Sulfate (morphine) 2 mg Q4H PRN IV SEVERE PAIN LEVEL 7-10; Start at 16:00 Ondansetron HCl (Zofran Inj) 4 mg Q6H PRN IV NAUSEA AND/OR VOMITING; Start 01/18 at 16:00 Sodium Biphosphate/ Sodium Phosphate (Fleet Enema) 133 ml DAILY PRN PA CONSTIPATION; Start 01/18/17 at 16:00 Pantoprazole (Protonix Tab) 40 mg DAILY@06 PO Last administered on 01/30/17 06 :41; Admin Dose 40 MG; Start 01/19/17 at 06:00 Nitroglycerin (Nitroglycerin (Sl Tab) 0.4 Mg) 1 tab Q5M PRN SL ANGINA; Start at 16:00 Acetaminophen (Tylenol Tab) 650 mg Q6H PRN PO PAIN LEVEL 1-3 OR FEVER Last administered on 01/25/17 20:46; Admin Dose 650 MG; Start 01/18/17 at 16:00 Acetaminophen/ Hydrocodone Bitart ([place] (5/325)) 1 tab Q6H PRN PO MODERATE PAIN LEVEL 4-6 Last administered on 01/29/17 15:20; Admin Dose 1 TAB; Start 01/18/17 at 16:00 Heparin Sodium (Porcine) (Heparin (5000 Units/0.5 ml)) 5,000 unit Q12 SC Last administered on 01/30/17 08:57; Admin Dose 5,000 UNIT; Start 01/18/17 at 21:00 Lorazepam (Ativan) 0.5 mg Q6H PRN IV ANXIETY; Start 01/18/17 at 16:00 Hydralazine HCl (Apresoline) 10 mg Q6H PRN IV ELEVATED BLOOD PRESSURE; Start at 16:00 Aspirin (Ecotrin) 325 mg DAILY PO Last administered on 01/30/17 08:56; Admin Dose 325 MG; Start 01/19/17 at 09:00 Atorvastatin Calcium (Lipitor) 80 mg HS PO Last administered on 01/29/17 21:01 ; Admin Dose 80 MG; Start 01/18/17 at 21:00 JEANNETTE HASSAN Jan 30, 2017 13:20
--- NOTE | 2017-01-30 20:01 | CONS ---
DATE OF ADMISSION: 01/18/2017 DATE OF CONSULTATION: 01/30/2017 PSYCHOLOGY--INDIVIDUAL SESSION--[id number] This is a followup on a patient who was seen last week. The patient has improved. The patient had been living in a room by himself and is not capable of doing this. The patient is being discharged tomorrow and is going to go to an assisted living-type situation. The patient was seen sitting up i n his wheelchair and did report that he feels like he has made progress in the program. The patient is still frustrated because he would like to be healthier than he is. The patient would like to muñiz ve no restrictions, but this is not possible, and he is aware of this. I worked with the patient, devon cervantes to help encourage him to continue to work on his physical and emotional health. Dictated By: LUCINDA CONNORS PHD RK/JUDY Conf#: [id number] DID#: [id number]
[2017-01-30 20:46] VITALS: BP 107/56; RESP 18
[2017-01-30] MEDS: SENNA TAB PO SCH (21:00)
[2017-01-30] MEDS: ATORVASTATIN 80 MG TAB PO SCH (21:02)
[2017-01-31] MEDS: PANTOPRAZOLE (EC) 40 MG TAB PO SCH (05:39)
[2017-01-31 07:30] VITALS: BP 124/74; PULSE 64; RESP 20
[2017-01-31] MEDS: ASPIRIN (EC) 325 MG TAB PO SCH (09:22)
[2017-01-31] MEDS: DOCUSATE SODIUM 100 MG CAP PO SCH (09:22)
[2017-01-31] MEDS: HEPARIN 5,000 UNIT/0.5 ML SYG SC SCH (09:25)
== END 2017-01-31 12:00 | DRG 57 ==
LOC: VRC 15:00
PROVIDERS: ADMIT Physical Medicine & Rehabilitation; ATTEND Family Medicine
DX: I69.951 Hemiplegia and hemiparesis following unspecified cerebrovascular disease affecting right dominant side (principal); F01.50 Vascular dementia, unspecified severity, without behavioral disturbance, psychotic disturbance, mood disturbance, and anxiety; I10 Essential (primary) hypertension; G31.84 Mild cognitive impairment of uncertain or unknown etiology; E78.5 Hyperlipidemia, unspecified; F06.31 Mood disorder due to known physiological condition with depressive features; Z87.891 Personal history of nicotine dependence
CPT/HCPCS: 80048; 80053; 81003; 83735; 84100; 85025; 87081; 87086; 92507; 92523; 92610; 95852; 97110; 97112; 97116; 97150; 97163; 97165; 97530; 97535; 97542; L1932; L2820

== ENCOUNTER 2017-10-26 10:43 | Emergency (ER) | payer MEDICARE, OTHER ==
[~2017-10-26] VITALS: Ht 165.1 cm; Wt 71.8 kg
[2017-10-26 10:50] VITALS: Ht 165.1 cm; Wt 71.8 kg
[2017-10-26] MEDS ORDERED: PRED20TA PO (11:13)
[2017-10-26] MEDS ORDERED: HC30CR25 TOP (11:13)
[2017-10-26] MEDS ORDERED: CETI10CA PO (11:13)
--- NOTE | 2017-10-26 11:17 | ERD ---
ER Documentation Chief Complaint Chief Complaint swelling on eyes , itching s/p use of hair color x 2 days ago HPI 67-year-old male presents with a itchy rash on his scalp some swelling on his forehead and periorbital area. He said it started after using an herbal hair color which he has never used before. Denies any pain, visual changes, fevers, shortness of breath. ROS All systems reviewed and are negative except as per history of present illness. Medications Home Meds Active Scripts Hydrocortisone* Topical (Hydrocortisone* Topical) 2.5%-28.3 Gm Cream..g., 1 APPLIC TOP BID for 7 Days, #1 TUB Prov:MELINA ONOFRE MD 10/26/17 Prednisone* (Prednisone*) 20 Mg Tab, 40 MG PO DAILY for 4 Days, TAB Start October 27, 2017 Prov:MELINA ONOFRE MD 10/26/17 Cetirizine Hcl* (Zyrtec*) 10 Mg Capsule, 10 MG PO DAILY, #15 TAB.CHEW Prov:MELINA ONOFRE MD 10/26/17 Allergies Allergies: Coded Allergies: No Known Allergy (Unverified , 01/16/17) PMhx/Soc History of Surgery: No Anesthesia Reaction: No Hx Neurological Disorder: No Hx Respiratory Disorders: No Hx Cardiac Disorders: Yes (HTN) Hx Psychiatric Problems: No Hx Miscellaneous Medical Probl: Yes Hx Alcohol Use: Yes Hx Substance Use: No Hx Tobacco Use: Yes Physical Exam Vitals Vital Signs Date Time Temp Pulse Resp B/P Pulse Ox O2 Delivery O2 Flow Rate FiO2 10/26/17 11:31 98.0 70 18 147/80 97 10/26/17 10:50 96.7 70 18 173/89 96 Physical Exam Const: [] Alert, [id number]. Head: Atraumatic. There is a erythematous rash on the scalp area bilaterally. Eyes: Normal Conjunctiva. There is some swelling without erythema or warmth in the periorbital area and forehead. There is no proptosis or abnormal eye movements. Eyes are Seth. ENT: Normal External Ears, Nose and Mouth. Neck: Full range of motion..~ No meningismus. Resp: Clear to auscultation bilaterally Cardio: Regular rate and rhythm, no murmurs Abd: Soft, non tender, non distended. Normal bowel sounds Skin: No petechiae or rashes Back: No midline or flank tenderness Ext: No cyanosis, or edema Neur: Awake and alert Psych: Normal Mood and Affect Results 24 hrs Current Medications Medications (Trade) Dose Ordered Sig/Chely Route PRN Reason Start Time Stop Time Status Last Admin Dose Admin Prednisone (Prednisone) 40 mg ONCE ONCE PO 10/26/17 11:30 10/26/17 11:31 DC 10/26/17 11:21 Diphenhydramine HCl (Benadryl) 25 mg ONCE ONCE PO 10/26/17 11:30 10/26/17 11:31 DC 10/26/17 11:21 Procedures/MDM Patient presents with signs and symptoms of contact dermatitis or. Radicular reaction to likely recent hair color. The ingredients are mostly herbal. The signs and symptoms do not suggest cellulitis, anaphylaxis, life-threatening rashes or purpura. He will be treated with prednisone, Benadryl and Zyrtec at home hydrocortisone instructions for cold wrenches and cold compresses. He should return for fevers, shortness breath, pain, worsening symptoms or primary care doctor this week. Is also advised to avoid future use of this hair color. Patient was noted to have elevated blood pressure as well. He is advised to follow-up with primary doctor for further recheck and evaluation and management as necessary. Patient has no signs or symptoms to suggest hypertensive emergency or endorgan damage. Departure Diagnosis: Primary Impression: Allergic reaction Encounter type: initial encounter Qualified Code: T78.40XA - Allergic reaction, initial encounter Additional Impression: Hypertension Hypertension type: essential hypertension Qualified Code: I10 - Essential hypertension Condition: Stable Patient Instructions: Allergic Reaction, Other (Local), Contact Dermatitis, High Blood Pressure (Hypertension) Additional Instructions: Apply cold compresses and cold rinses at home. Recheck for fevers, shortness of breath, new or worsening symptoms. See primary doctor for further evaluation and management of elevated blood pressure. MELINA ONOFRE MD Oct 26, 2017 11:17
[2017-10-26] MEDS ORDERED: predniSONE 20 MG TAB PO ONE (11:30)
[2017-10-26] MEDS ORDERED: DIPHENHYDRAMINE 25 MG CAP PO ONE (11:30)
[2017-10-26 11:31] VITALS: BP 147/80; PULSE 70; RESP 18; TEMP 98
== END 2017-10-26 11:39 | disposition home or self-care (01) ==
LOC: FTE 10:43
DX: L29.9 Pruritus, unspecified (principal); I10 Essential (primary) hypertension; Z87.891 Personal history of nicotine dependence
CPT/HCPCS: 99283; J7512